=== PATIENT | male | born 1940 | race Caucasian/White ===

== ENCOUNTER 2018-05-08 07:00 | Outpatient (RCR) | payer MEDICARE, SELFPAY ==
--- NOTE | 2018-04-18 18:29 | HP.PTEVAL_ITS ---
Patient's Visit Information DAKOTA PULIDO is a 78 year old M referred to Physical Therapy by Peter Miller MD with a diagnosis of L hip bursitis. Date of Evaluation: 04/18/18 Physical Therapist: Kamlesh Newton PT, - Visit Plan Frequency: 1x/Week Duration: 2 Weeks Plan: Issue HEP L LE strengthening, deg L/S ex's, and postural edu - Subjective Subjective: Pt reports he has had L hip pain for a long time, probably many months. Pt reports he had xrays and reported that he had bursitis. Pt reports his pain always increases as the day goes on. Pt reports he has a difficult time ascending and decending stairs at this time secondary to pain. Pt reports he had an injection into his L hip which has taken away his L hip pain. Pt reports his greatest pain now occurs when he is walking, and it occurs on the lateral aspect of his legs the more he walks. - Pain L hip Pain Intensity (Out of 10): 3 Pain Intensity Range: 7 - Objective Neuro: B LE sensation is WNL to light touch. Palpation: No pain in L hip. No obvious deformity. MMT: B LE's are grossly rated at 4+/5- 5/5. ROM: B hips are WFL. Special tests: None pos this date - Goals Goal 1:: I with HEP 1-2 visits Goal Time Frame: 1 Week - Rehabilitation Potential Physical Therapy Diagnosis: L hip pain and intol for ambulation secondary to L hip bursitis Rehabilitation Potential: Good - Anticipated Interventions Patient/Client Instruction: Educate patient on: Condition, Plan of Care For the Purpose of:: To improve self management Therapeutic Exercise to Include: Strength training, Dynamic Lumbar Stabilization, Stacy Exercises For the Purpose of:: To decrease pain, To improve muscle performance and motor function Thank you for the opportunity to evaluate your patient. For Medicare and Medicare HMO plans, please review the plan of care and approve it. It will need to be FAXED BACK to us at [phone] for Medicare purposes. Please let me know if there are questions or concerns regarding this plan of care. Physician Signature: Date:
--- NOTE | 2018-06-27 12:31 | HP.PT.NRP ---
HP - Discharge Summary (1) - Patient Information DAKOTA PULIDO was seen in my office for initial evaluation on 04/18/18. The following Plan of Care was established for this patient: Initial Frequency: 1x/Week Initial Duration: 2 Weeks - Anticipated Interventions Patient/Client Instruction: Educate patient on: Condition, Plan of Care For the Purpose of:: To improve self management Therapeutic Exercise to Include: Strength training, Dynamic Lumbar Stabilization, Stacy Exercises For the Purpose of:: To decrease pain, To improve muscle performance and motor function This patient was last seen in our office . Pertinent comments regarding their Physical therapy will appear below: Pt was treated for 3 PT visits for his L hip pain through the date of 05/08/18. Pt has not scheduled further PT through todays date, and is therefore discontinued at this time. At this point I will be discontinuing this patient from physical therapy. I would be happy to see this patient again in the future if found appropriate by the physician. Thank you! Kamlesh Newton, PT,
== END 2018-05-08 19:00 | disposition home or self-care (01) ==
LOC: PT 07:00
PROVIDERS: Family Provider Family Medicine; PCP Family Medicine; Referring Provider Specialist; Visit Provider Specialist
DX: M16.12 Unilateral primary osteoarthritis, left hip (principal); M70.62 Trochanteric bursitis, left hip
CPT/HCPCS: 97110; 97161; 97530; G8978; G8979

== ENCOUNTER 2018-10-03 10:30 | Outpatient (RCR) | payer MEDICARE, SELFPAY ==
--- NOTE | 2018-09-13 16:06 | HP.PTEVAL_ITS ---
Patient's Visit Information DAKOTA PULIDO is a 78 year old M referred to Physical Therapy by Peter Miller MD with a diagnosis of L rot cuff tear. Date of Evaluation: 09/13/18 Physical Therapist: Kamlesh Newton, PT, ATC - Visit Plan Frequency: 1x/Week Duration: 2 Weeks Plan: Issue HEP rot cuff strengthening and scap stab ex's - Subjective Findings: Pt reports he reached for something 2 mos ago and experienced a very sharp pain in his L shoulder. Pt reports he had xrays taken which revealed no significant findings. Pt reports he was given the option of an injection and PT, or surgery. Pt now wishes he would just have had the surgery as he is in a lot of pain. Pt is R hand dominant. Pt notes he has to sleep in a recliner secondary to pain. Pt reports he is limited with IADL's secondary to pain. 3/10 pain at rest, 10/10 at worst. Pt reports he has limitations with any type of activity overhead. - Pain L shoulder Pain Intensity (Out of 10): 3 Pain Intensity Range: 10 - Objective Neuro: B UE sensation is WNL to light touch. B bicepital reflex= 2/3. Palpation: Pt is sore on posterior aspect of L shoulder. No obvious deformity at this time. ROM: R shoulder flex= 130, abd= 105, ER= 0. L shoulder flex= 105, abd= 90, ER= 0. MMT: B shoulders are rated at 3-/5. Special tests: Positive empty can and HK - Goals Goal 1:: I with HEP Goal Time Frame: 2 Weeks - Rehabilitation Potential Physical Therapy Diagnosis: L shoulder pain, weakness, and limited ROM secondary to deg changes in L shoulder Rehabilitation Potential: Good - Anticipated Interventions Patient/Client Instruction: Educate patient on: Condition, Plan of Care For the Purpose of:: To improve self management Therapeutic Exercise to Include: Strength training, Endurance training, Scapular Strength/Stabilization For the Purpose of:: To decrease pain, To increase ROM, To improve muscle p erformance and motor function Cryotherapy (ice pack, ice massage): Yes Ultrasound (thermal/non thermal): Yes For the Purpose of:: To decrease pain Thank you for the opportunity to evaluate your patient. For Medicare and Medicare HMO plans, please review the plan of care and approve it. It will need to be FAXED BACK to us at [phone] for Medicare purposes. For Medicare only, by signing this I certify the plan of care. Please let me know if there are questions or concerns regarding this plan of care. Physician Signature: Date:
--- NOTE | 2018-10-03 11:07 | HP.PTDCSUM ---
HP - PT D/C Summary It has been my pleasure to treat DAKOTA PULIDO under orders from Peter Miller MD, for the diagnosis of L rot cuff tear for a total of 3 visit(s). Discharge Date: Please see the following information for a summary of their discharge status. - Subjective Subjective: Pt reports he feels like he has made improvements - Pain L shoulder Pain Intensity (Out of 10): 4 - Overall Improvement % Improvement: 30 - Objective Objective/Function: L shoulder constant 4/10. L shoulder ROM: flex= 115, abd= 75, ER= -10, IR minimally limited. L shoulder MMT: flex and abd= 4/5, IR and ER= 2/5 in available range. Pt is I with HEP - Goals Goal 1:: I with HEP Goal Progress: Goal Met - Plan Plan: Discharge - D/C Information If there are questions or concerns regarding this patient's physical therapy, please feel free to call me at [phone]. Thank you for the referral of this patient. Sincerely, Kamlesh Newton, PT, ATC
== END 2018-10-03 19:00 | disposition home or self-care (01) ==
LOC: PT 10:30
PROVIDERS: Family Provider Family Medicine; PCP Family Medicine; Referring Provider Specialist; Visit Provider Specialist
DX: S46.012D Strain of muscle(s) and tendon(s) of the rotator cuff of left shoulder, subsequent encounter (principal); M75.42 Impingement syndrome of left shoulder; M19.012 Primary osteoarthritis, left shoulder
CPT/HCPCS: 97110; 97161; 97530

== ENCOUNTER → 2018-10-16 11:01 | Outpatient (CLI) | payer MEDICARE, SELFPAY ==
[2018-10-16 11:16] LABS: Hematocrit 46.6 % (40-54); Hemoglobin 15.4 g/dl (13.0-16.5); Mean Corpuscular Hgb 30.9 pg (27.0-32.0); Mean Corpuscular Volume 93.4 fL (80-94); Platelet Count 195 K/mm3 (150-450); RBC Distribution Width CV 13.5 % (11.6-14.6); RBC Distribution Width SD 45.9 fl (35.1-43.9); Red Blood Count 4.99 M/mm3 (4.6-6.2); White Blood Count 5.8 K/mm3 (4.4-11.0)
[2018-10-16 11:17] LABS: Scan Indicated on CBC? Y/N NO
[2018-10-16 11:24] LABS: ALB/GLOB Ratio 1.3 RATIO (0.9-2.4); AST(SGOT) 20 U/L (15-37); Alanine Aminotransfer ALT/SGPT 28 U/L (16-61); Albumin, Serum 3.8 g/dL (3.2-5.0); Alkaline Phosphatase 55 U/L (45-117); Anion Gap 4 (5-15); BUN 20 mg/dL (7-18); BUN/Creat Ratio 26.3 RATIO (10-20); Calcium,Total 8.4 mg/dL (8.5-10.1); Chloride 106 mmol/L (98-107); Cholesterol 144 mg/dL (200); Creatinine, Serum 0.76 mg/dL (0.70-1.30); EST Glomerular Filtration Rate 106 mL/min (>60); Est Glom Filt Rate - Afr Amer 128 mL/min (>60); Glucose 92 mg/dL (74-106); High Density Lipoprotein 49 mg/dL; Potassium 3.8 mmol/L (3.5-5.1); Protein, Total 6.8 g/dL (6.4-8.2); Sodium Level 141 mmol/L (136-145); Triglycerides 87 mg/dL; Very Low Density Lipoprotein 17 mg/dL (5-40)
== END ==
PROVIDERS: Referring Provider Family Medicine; Visit Provider Family Medicine
DX: I10 Essential (primary) hypertension (principal); E78.5 Hyperlipidemia, unspecified
CPT/HCPCS: 80053; 80061; 85027

== ENCOUNTER → 2019-03-07 07:56 | Outpatient (CLI) | payer MEDICARE, SELFPAY ==
--- NOTE | 2019-02-03 22:24 | PCM.HP.BLA ---
History and Physical History and Physical Patient Name: Johnny Betancourt : 1940 DATE OF SURGERY: 02/26/2019 SCHEDULED PROCEDURE: left reverse total shoulder arthroplasty HISTORY OF PRESENT ILLNESS: Preoperative history and physical exam was performed on February 03, 2019. This is a 78-year-old male who is been having ongoing pain in the left shoulder for the past 8-10 months. Patient states he had initial pain after reaching out to catch an empty milk jug. Since then patient has had pain with overhead lifting. Patient had an MRI which did show full-thickness supraspinatus tear with 70% atrophy of the supraspinatus with retraction past the joint. Patient's x-ray also showed joint space noted of the glenohumeral joint. Patient has had previous subacromial shoulder injection which did help the pain. However he was placed in physical therapy and states he continues to have difficulty with activities of daily living including lifting overhead or behind his body. His range of motion is significantly affected due to the pain and limited motion. Patient does feel weaker in the left shoulder. Patient has tried oral medications consisting of Aleve and turmeric. Pain can reach as high as a 10/10 with activity. After failing conservative measures and discussing treatment options of Dr. Peter Miller, the patient would like to proceed with a left reverse total shoulder arthroplasty. We are obtaining surgical clearance from patient's primary care physician Dr. Dixon. Patient currently denies any chest pain, shortness of breath, fevers chills, recent infections. REVIEW OF SYSTEMS: ROS: Const: Reports hard of hearing, but denies anorexia, anxiety, change in appetite, fever, vision problems and weight change. CV: Denies chest pain, heart murmur, irregular heartbeat and peripheral vascular disease. Resp: Denies asthma, cough, pneumonia, sleep apnea, SOB, tuberculosis and wheezing. GI: Denies constipation, diarrhea, difficulty swallowing, heartburn, nausea, bloody stools and vomiting. : Urinary: denies incontinence. Musculo: Reports limp and trouble walking, but denies leg swelling and weakness. Skin: Denies Raynaud's, history of shingles and tattoo. Neuro: Reports numbness/tingling but denies ambulatory dysfunction, dizziness and tremor. Psych: Denies anxiety, depression, insomnia, mental illness and stress. Omkar/Lymph: Denies anemia, bleeding/bruising tendency and past transfusion. Reviewed, no changes. PAST MEDICAL HISTORY: Advance Care Plan: No Advance Directives Effective Date: 04/11/2018 PMH: Medical Problems: Arthritis, High Blood Pressure Accidents: LT Index Finger Injury - (07/17/2016) DRILLED THRU TIP OF FINGER Surgical Hx: Appendectomy - (1957) [facility] Tonsillectomy - [facility] Shoulder Arthroscopy RT - (11/24/2008) DR MARTINEZ AT [facility] Carpal Tunnel Release RT - (08/08/2016) [email or web address] Carpal Tunnel Release LT - (09/05/2016) [email or web address], RT TKR, RT THR Anesthesia Complications: None Assistive Devices: Dentures, Glasses - READING, Hearing Aid Reviewed and updated. 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 Personal Habits: Cigarette Use: Former.Alcohol: Has consumed alcohol in the past.Drug Use: Denies Use.Enjoy Exercising: Exercises 1-3 X/Week. Reviewed, no changes. VITALS: Ht: 67 Wt: 275lb Wt k.740 BMI: 43.1 BP: 131/75 Pulse: 61 Resp: 20 T: 97.9 T: 36.6C ALLERGIES: No Known Drug Allergy MEDICATIONS: Hydrochlorothiazide 25 mg 1 po qd, Amlodipine Besylate 5 mg 1po qday, Aleve 220 mg prn, Tumeric 1 tab PO daily PRE-OP EXAM: General appearance:NORMAL Other: Eyes: Conjunctivae and lids: NORMAL Pupils: ERR Ears, Nose, Mouth, and Throat: NORMAL Other: Inspection of lips, teeth and gums: NORMAL Other: Neck: Examination of neck: no masses noted. Respiratory: Assessment of respiratory effort: NORMAL Other: Auscultation of lungs: clear to auscultation no wheezes, rhonchi or rales. Cardiovascular: Auscultation of heart: regular rate and rhythm, no murmurs, gallops or rubs. Gastrointestinal: Exam of abdomen: soft, nontender, nondistended bowel sounds present. PHYSICAL EXAMINATION: Left shoulder is cool to touch without erythema. There is no appreciable atrophy. She has tenderness to palpation over the left lateral shoulder. Patient has positive Neer impingement, positive Salas impingement. Range of motion left shoulder 140 bilaterally, external rotation 20 actively on the right and 20 actively on the left. Internal rotation T12 on the left and T12 on the right. Supraspinatus strength on the left. Sensation intact to light touch. IMAGING STUDIES: MRI of the left shoulder reveals full-thickness supraspinatus tear of the rotator cuff with greater than 70% atrophy of the supraspinatus. There is retraction past the joint. X-rays of the left shoulder also revealed joint space narrowing of the glenohumeral joint. There is evidence of chronic rotator cuff insufficiency. IMPRESSION: 1. 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 Hypertension PLAN: Dr. Peter Miller did discuss and review with the patient all treatment options including surgical versus nonsurgical options. Patient does wish to proceed with the above-stated procedure. Potential risks, benefits, and complications of the procedure were discussed in detail including but not limited to , infection, nerve and blood vessel damage, persistent pain, numbness, tingling, paresthesias, blood clot, pulmonary embolism, and requirement for possible further surgery. The patient expressed full understanding and has no further questions for the doctor. Patient does agree to proceed with the above-stated procedure and has signed the surgery consent form. This dictation was created using voice recognition software. Phonetic and/or grammatical errors may exist.. ___ I have re-examined the patient. There are no clinical changes since date of exam. ___ See progress notes for changes. ___ Dictated on admission Date: Time: Signature:
--- NOTE | 2019-02-13 14:57 | EKG12_ITS ---
Test Reason : Blood Pressure : / mmHG Vent. Rate : 051 BPM Atrial Rate : 051 BPM P-R Int : 270 ms QRS Dur : 094 ms QT Int : 454 ms P-R-T Axes : 067 -43 -14 degrees QTc Int : 418 ms Sinus bradycardia with 1st degree A-V block Left axis deviation Minimal voltage criteria for LVH, may be normal variant Abnormal ECG Confirmed by FATUMA GORDON, XOCHILT ([id number]), editor managing director SCOTT CUETO ([id number]) on 02/17/2019 1:21:01 PM Referred By: Peter Miller Confirmed By:XOCHILT BURRIS MD
[2019-02-13 15:41] VITALS: BP 125/59; PULSE 55; RESP 16; TEMP 36.5; O2SAT 95; BMI 41.8
[2019-02-13 16:56] LABS: Absolute Lymphocyte Count 1.82 X10^3/uL (0.83-4.51); Absolute Neutrophil Count 4.3 X10^3/uL (2.0-7.7); Basophil# 0.04 X10^3/uL; Basophil% 0.6 % (0-1); Eosinophil# 0.17 X10^3/uL; Eosinophils% 2.4 % (0-5); Hematocrit 45.6 % (40-54); Hemoglobin 14.9 g/dL (13.0-16.5); Lymphocyte # 1.82 X10^3/ul (4.0); Lymphocyte % 25.8 % (19-41); Mean Corp Hgb Conc 32.7 g/dL (32-36); Mean Corpuscular Hgb 30.5 pg (27.0-32.0); Mean Corpuscular Volume 93.3 fL (80-94); Mean Platelet Vol. 10.5 fl (6.2-12.0); Monocyte# 0.71 X10^3/uL; Monocyte% 10.1 % (0-10); NRBC Flagged by Analyzer 0 % (0-5); Neutrophil # 4.28 X10^3/uL (2.7-7.7); Neutrophil % 60.7 % (47-70); Platelet Count 177 K/mm3 (150-450); RBC Distribution Width CV 12.9 % (11.6-14.6); RBC Distribution Width SD 44.1 fl (35.1-43.9); Red Blood Count 4.89 M/mm3 (4.6-6.2); White Blood Count 7.1 K/mm3 (4.4-11.0)
[2019-02-13 17:23] LABS: ALB/GLOB Ratio 1.4 RATIO (0.9-2.4); AST(SGOT) 19 U/L (15-37); Alanine Aminotransfer ALT/SGPT 29 U/L (16-61); Albumin, Serum 3.8 g/dL (3.2-5.0); Alkaline Phosphatase 53 U/L (45-117); Anion Gap 7 (5-15); BUN 27 mg/dL (7-18); Calcium,Total 8.8 mg/dL (8.5-10.1); Chloride 106 mmol/L (98-107); Creatinine, Serum 0.77 mg/dL (0.70-1.30); EST Glomerular Filtration Rate 104 mL/min (>60); Est Glom Filt Rate - Afr Amer 126 mL/min (>60); Globulin 2.8 g/dL (2.2-4.2); Glucose 91 mg/dL (74-106); Potassium 3.8 mmol/L (3.5-5.1); Protein, Total 6.6 g/dL (6.4-8.2); Sodium Level 143 mmol/L (136-145)
== END ==
LOC: MS3 02-26 06:50 → SDC 07:57
PROVIDERS: Family Provider Family Medicine; PCP Family Medicine; Referring Provider Specialist; Visit Provider Specialist
DX: M19.012 Primary osteoarthritis, left shoulder (principal); I10 Essential (primary) hypertension; Z87.891 Personal history of nicotine dependence
CPT/HCPCS: 36415; 80053; 85025; 87081; 93005; J7040; J7120

== ENCOUNTER 2019-04-23 05:14 | Inpatient (IN) | payer MEDICARE, SELFPAY ==
[2019-02-13 15:41] VITALS: BMI 41.8
[2019-04-04 10:32] VITALS: BP 113/64; PULSE 56; RESP 17; TEMP 36.5; O2SAT 97; BMI 40.0
[2019-04-04 11:12] LABS: Absolute Lymphocyte Count 1.58 X10^3/uL (0.83-4.51); Absolute Neutrophil Count 3.4 X10^3/uL (2.0-7.7); Basophil# 0.03 X10^3/uL; Basophil% 0.5 % (0-1); Eosinophil# 0.14 X10^3/uL; Eosinophils% 2.4 % (0-5); Hematocrit 48.2 % (40-54); Hemoglobin 15.7 g/dL (13.0-16.5); Lymphocyte # 1.58 X10^3/ul (4.0); Lymphocyte % 27.1 % (19-41); Mean Corp Hgb Conc 32.6 g/dL (32-36); Mean Corpuscular Hgb 30.6 pg (27.0-32.0); Monocyte# 0.62 X10^3/uL; Monocyte% 10.7 % (0-10); NRBC Flagged by Analyzer 0 % (0-5); Neutrophil # 3.43 X10^3/uL (2.7-7.7); Platelet Count 189 K/mm3 (150-450); RBC Distribution Width CV 12.9 % (11.6-14.6); RBC Distribution Width SD 44.7 fl (35.1-43.9); Red Blood Count 5.13 M/mm3 (4.6-6.2); White Blood Count 5.8 K/mm3 (4.4-11.0)
[2019-04-04 11:47] LABS: Anion Gap 3 (5-15); BUN 22 mg/dL (7-18); BUN/Creat Ratio 31.6 RATIO (10-20); Calcium,Total 8.9 mg/dL (8.5-10.1); Chloride 105 mmol/L (98-107); EST Glomerular Filtration Rate 117 mL/min (>60); Est Glom Filt Rate - Afr Amer 141 mL/min (>60); Estimated Creatinine Clearance 61.86 ml/min; Glucose 104 mg/dL (74-106); Potassium 3.8 mmol/L (3.5-5.1); Sodium Level 139 mmol/L (136-145)
--- NOTE | 2019-04-04 12:48 | HP.PCM_ITS ---
History and Physical Patient Name: Johnny Betancourt : 1940 From: EHSAN SANTORO PA-C DATE OF SURGERY: 04/23/2019 SCHEDULED PROCEDURE: left reverse total shoulder arthroplasty HISTORY OF PRESENT ILLNESS: Preoperative history and physical exam was performed on April 04, 2019. This is a 79-year-old male who was scheduled to previously undergo a left reverse total shoulder arthroplasty but had to be canceled due to open wounds on his arm. Patient's wounds have healed and he is doing significantly better. Patient has been having ongoing pain in his left shoulder for approximately 1 year. Patient initially had pain after reaching out trying to catch an empty milk jug when he had increased pain. Since then he has had pain with overhead lifting. Previous MRI did show supraspinatus tear full-thickness with 70% atrophy and retraction. Patient also has significant osteoarthritis of the glenohumeral joint. He has had previous corticosteroid injections with no relief in symptoms. He has undergone physical therapy without relief. He continues to struggle daily with activities of daily living requiring any overhead use or behind the body. His range of motion is significantly affected on the left side when compared to the right. On the left shoulder. Patient has tried oral medications consisting of Aleve and turmeric. Pain can reach a size a 10/10. We have obtain surgical clearance from patient's primary care physician Dr. Dixon. Patient currently denies any chest pain, shortness of breath, fevers chills, recent infections. After failing conservative measures and discussing treatment options with Dr. Peter Miller, the patient does wish to proceed with a left reverse total shoulder arthroplasty. REVIEW OF SYSTEMS: ROS: Const: Reports hard of hearing, but denies anorexia, anxiety, change in appetite, fever, vision problems and weight change. CV: Denies chest pain, heart murmur, irregular heartbeat and peripheral vascular disease. Resp: Denies asthma, cough, pneumonia, sleep apnea, SOB, tuberculosis and wheezing. GI: Denies constipation, diarrhea, difficulty swallowing, heartburn, nausea, bloody stools and vomiting. : Urinary: denies incontinence. Musculo: Reports limp and trouble walking, but denies leg swelling and weakness. Skin: Denies Raynaud's, history of shingles and tattoo. Neuro: Reports numbness/tingling but denies ambulatory dysfunction, dizziness and tremor. Psych: Denies anxiety, depression, insomnia, mental illness and stress. Omkar/Lymph: Denies anemia, bleeding/bruising tendency and past transfusion. Reviewed, no changes. PAST MEDICAL HISTORY: Advance Care Plan: No Advance Directives Effective Date: 04/11/2018 PMH: Medical Problems: Arthritis, High Blood Pressure Accidents: LT Index Finger Injury - (07/17/2016) DRILLED THRU TIP OF FINGER Surgical Hx: Appendectomy - (1957) [facility] Tonsillectomy - [facility] Shoulder Arthroscopy RT - (11/24/2008) DR MARTINEZ AT [facility] Carpal Tunnel Release RT - (08/08/2016) [email or web address] Carpal Tunnel Release LT - (09/05/2016) [email or web address] [email or web address], RT TKR, RT THR Anesthesia Complications: None Assistive Devices: Dentures, Glasses - READING, Hearing Aid Reviewed, no changes. 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 Personal Habits: Cigarette Use: Former.Alcohol: Has consumed alcohol in the past.Drug Use: Denies Use.Enjoy Exercising: Exercises 1-3 X/Week. Reviewed, no changes. VITALS: Ht: 68 Wt: 270lb Wt k.472 BMI: 41.0 BP: 138/80 Pulse: 60 Resp: 14 T: 97.5 T: 36.4C ALLERGIES: No Known Drug Allergy MEDICATIONS: Hydrochlorothiazide 25 mg 1 po qd, Amlodipine Besylate 5 mg 1po qday, Aleve 220 mg prn PRE-OP EXAM: General appearance:NORMAL Other: Eyes: Conjunctivae and lids: NORMAL Pupils: ERR Ears, Nose, Mouth, and Throat: NORMAL Other: Inspection of lips, teeth and gums: NORMAL Other: Neck: Examination of neck: no masses noted. Respiratory: Assessment of respiratory effort: NORMAL Other: Auscultation of lungs: clear to auscultation no wheezes, rhonchi or rales. Cardiovascular: Auscultation of heart: regular rate and rhythm, no murmurs, gallops or rubs. Gastrointestinal: Exam of abdomen: soft, nontender, nondistended bowel sounds present. PHYSICAL EXAMINATION: Bilateral forearms show healed abrasions. There is no erythema or drainage or any open wounds. Left shoulder is cool to touch without erythema. There is no appreciable atrophy. She has tenderness to palpation over the left lateral shoulder. Patient has positive Neer impingement, positive Salas impingement. Range of motion left shoulder 140 bilaterally, external rotation 20 actively on the right and 20 actively on the left. Internal rotation T12 on the left and T12 on the right. Supraspinatus strength on the left. Sensation intact to light touch. IMAGING STUDIES: MRI of the left shoulder reveals full-thickness supraspinatus tear of the r otator cuff with greater than 70% atrophy of the supraspinatus. There is retraction past the joint. X-rays of the left shoulder also revealed joint space narrowing of the glenohumeral joint. There is evidence of chronic rotator cuff insufficiency. IMPRESSION: 1. 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 Hypertension PLAN: Dr. Peter Miller did discuss and review with the patient all treatment options including surgical versus nonsurgical options. Patient does wish to proceed with the above-stated procedure. Potential risks, benefits, and complications of the procedure were discussed in detail including but not limited to , infection, nerve and blood vessel damage, persistent pain, numbness, tingling, paresthesias, blood clot, pulmonary embolism, and requirement for possible further surgery. The patient expressed full understanding and has no further questions for the doctor. Patient does agree to proceed with the above-stated procedure and has signed the surgery consent form. This dictation was created using voice recognition software. Phonetic and/or grammatical errors may exist. ___ I have re-examined the patient. There are no clinical changes since date of exam. ___ See progress notes for changes. ___ Dictated on admission Date: Time: Signature:
[2019-04-23] VITALS (12 sets, daily range): BP systolic 91–150; BP diastolic 52–85; PULSE 49–92; RESP 16–18; TEMP 35.6–36.8; O2SAT 94–100; BMI 40.0; BMI 40.1
[2019-04-23] MEDS: Magnesium Sulfate 4gm/100mL 4 GM/100 ML IV.SOLN. IV (06:02)
[2019-04-23] MEDS: Acetaminophen 500 MG Tablet 1000 MG PO ×3 (06:03→21:37)
[2019-04-23] MEDS: Celecoxib 200 MG Capsule 400 MG PO (06:03)
[2019-04-23] MEDS: Gabapentin 600 MG Tablet PO (06:03)
[2019-04-23] MEDS: Lactated Ringers 1,000 ML 100 ML IV (06:05)
[2019-04-23 06:41] LABS: Bedside Glucose 98 mg/dL (70-110)
[2019-04-23] MEDS: dexAMETHasone 10 MG/ML Vial IV (08:56)
--- NOTE | 2019-04-23 10:00 | OP.PCM_ITS ---
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 Tacos reunion glenoid baseplate with 28 mm screw 2. Tacos reunion 36 mm, 2 mm offset glenosphere 3. [place] reunion short stem 15 mm 4. [place] reunion 36 mm +4 mm baseplate 4. [place] reunion X3 polyethylene, +6 mm polyethylene Brief history/Operative indications: 79 yo m with history of L shoulder pain and cuff tear arthropathy. Patient failed conservative measures as mentioned in the H&P. After discussion of risk and benefits of reverse total shoulder replacement including but not limited to blood loss, DVTs, PEs, nerve vessel damage, infection, general risk of anesthesia including loss of life, instability and stiffness patient demonstrating understanding wish to proceed was able to sign informed consent. Medical clearance was obtained. Procedure: On the date of the procedure, patient's L upper extremity was marked in the preoperative area. Patient was taken back to the operating room where they were placed on the table in the supine position. Anesthesia assumed control of the C-spine and airway, then administered anesthetic. All bony prominences were identified well-padded, the head was secured and the patient was placed in the beachchair position at about 35? inclination. Anesthesia remained in control of the C-spine airway throughout the remainder of the procedure. Patient was then appropriately fastened to the table and the L upper extremity was prepped in a sterile fashion. The surgeons then scrubbed. Upon reentering the room, the L upper extremity was draped in a sterile fashion and the incision was marked out. Timeout was called, everyone agreed upon the side, the site, the procedure to be performed, patient identity and antibiotics given. Incision was taken down through skin and subcutaneous tissue, fat down to fascia. The stripe of the deltopectoral interval and cephalic vein were identified and blunt dissection was used to retract the deltoid. The cephalic vein was retracted laterally. Clavipectoral fascia was then incised and a cobra retractor was placed in the wound. The proximal one third of the pectoralis major insertion was released. Pectoralis tendon insertion was used to tenodesed the biceps tendon which was identified in the bicipital groove. Tenodesis was done with #1 Vicryl. Proximally we followed the biceps tendon after transecting it into the rotator interval. The rotator interval was split and the arm was externally rotated. The split was 1 cm medial to the bicipital groove. Subscapularis tendon was released. We released down the anterior portion of the humeral head and a arias elevator was used to release the inferior portion of the humeral head. The arm was externally rotated and the shoulder was dislocated. The humeral head cutting guide was used to make humeral cut. This was done at 20? retroversion. Once his humeral head cut was made humerus was retracted out of the way and the glenoid was exposed. After exposing the glenoid, the labrum and the remaining proximal biceps were debrided. At this time we are able to view the entire outer edge of the glenoid. A central pin was placed we sequentially reamed over this central pin to 36mm. Once this was completed the central pedicle was drilled. The glenoid baseplate was impacted into place. Wound was closely irrigated out with normal saline we then drilled sequentially for 2 screws. Screws were placed superiorly and inferiorly and tightened down the screws. a 36 mm glenosphere was impacted into place engaging the Mariscal taper. The central screw was then tightened into place. Attention was then turned towards the humerus. The humerus was again externally rotated exposing the proximal portion of the humerus. Central canal finder was then used to open up the canal. We reamed to a 15mm reamer. We then broached to a 15mm stem. We trialed the 6mm liner, with the 4mm humeral baseplate. We obtained an adequate reduction at this time with a nice stable shoulder. Good internal rotation to the gluteus, forward elevation to 140?, external rotation to 20?. Final components were then assembled on the back table, trials were removed and the wound was copiously irrigated with normal saline after dislocating the shoulder. Once the final components were assembled they were impacted into place. Shoulder was then reduced and found to be stable with good range of motion. Subscapularis tendon was repaired using #2 FiberWire. The wound was then copiously irrigated out with a a chlorhexidine lavage and then 1 L normal saline lavage. The deltopectoral fascia was then closed using #1 Vicryl skin was closed using 2-0 Vicryl interrupted sutures and final skin closure was done with 3-0 Monocryl. Steri-Strips are placed for final skin closure. Sterile dressing was placed patient was then placed in a sling and awakened by anesthesia. Patient was then transferred to the PACU for recovery. Postoperative plan: Patient will be admitted to the hospital overnight. They will get physical therapy starting in 2 weeks with normal postoperative regimen. Patient will be placed on aspirin daily for DVT prophylaxis. The first postoperative appointment will be in 2 weeks for wound check and initiation of phase 1 physical therapy. Grafts/Implants Used: Tacos reunion reverse total shoulder system - Complications No intraoperative complications - Admit VTE Documentation VTE Present on Admission: No VTE Mechan Device Prophylaxis: SCD's, Thigh High AURORA Hose VTE Pharm Prophylaxis ordered?: Yes
[2019-04-23] MEDS: Lactated Ringers 1,000 ML 999 ML IV (10:40)
--- NOTE | 2019-04-23 11:03 | RAD_ITS ---
STUDY: X-RAY - LEFT SHOULDER REASON FOR EXAM: Male, 79 years old. Recent left shoulder hemiarthroplasty TECHNIQUE: 3 view view(s) of the shoulder. COMPARISON: None. FINDINGS: A recent reverse right shoulder hemiarthroplasty has been performed showing the hemiarthroplasty and axial anatomic position and alignment. The soft tissue structures are unremarkable. Normal visualized pulmonary apex. RAD/Shoulder min 2 Views IMPRESSION: A reverse right shoulder hemiarthroplasty is identified in excellent anatomic position and alignment.. Electronically Signed: Wolfgang Perea, at 11:25 EDT Tel , Service support ,
[2019-04-23] MEDS: Lactated Ringers 1,000 ML 125 ML IV (11:53)
[2019-04-23] MEDS: hydroCHLOROthiazide 25 MG Tablet PO (12:27)
[2019-04-23] MEDS: Senna/Docusate Sodium 1 Tablet 2 TABLET PO ×2 (12:27→21:37)
[2019-04-23] MEDS: Ensure Surgery 237 ML LIQUID PO ×2 (12:27→18:15)
[2019-04-23] MEDS: Famotidine 20 MG Tablet PO (12:27)
[2019-04-23] MEDS: Cefazolin 1 GM/50 ML BAG IV (16:32)
[2019-04-24] MEDS: Cefazolin 1 GM/50 ML BAG IV (00:08)
[2019-04-24 03:33] VITALS: BP 126/59; PULSE 58; RESP 18; TEMP 36.6; O2SAT 95
[2019-04-24] MEDS: 0.9% NaCl Peripheral Flush Adult/Peds IV (03:36)
[2019-04-24] MEDS: Acetaminophen 500 MG Tablet 1000 MG PO (05:59)
[2019-04-24 06:03] LABS: Hemoglobin 14.8 g/dL (13.0-16.5); Mean Corp Hgb Conc 32.2 g/dL (32-36); Mean Corpuscular Hgb 30.7 pg (27.0-32.0); Mean Corpuscular Volume 95.4 fL (80-94); Mean Platelet Vol. 10.4 fl (6.2-12.0); Platelet Count 186 K/mm3 (150-450); RBC Distribution Width CV 13.1 % (11.6-14.6); RBC Distribution Width SD 46.2 fl (35.1-43.9); Red Blood Count 4.82 M/mm3 (4.6-6.2); White Blood Count 14.5 K/mm3 (4.4-11.0)
[2019-04-24 06:36] LABS: Anion Gap 6 (5-15); BUN 17 mg/dL (7-18); BUN/Creat Ratio 22.9 RATIO (10-20); Calcium,Total 8.5 mg/dL (8.5-10.1); Chloride 103 mmol/L (98-107); Creatinine, Serum 0.74 mg/dL (0.70-1.30); EST Glomerular Filtration Rate 109 mL/min (>60); Est Glom Filt Rate - Afr Amer 132 mL/min (>60); Estimated Creatinine Clearance 61.86 ml/min; Glucose 114 mg/dL (74-106); Potassium 3.8 mmol/L (3.5-5.1); Sodium Level 142 mmol/L (136-145)
--- NOTE | 2019-04-24 07:39 | PCM.PN.ORT ---
Subjective: The patient was sitting in bedside chair upon examination. Patient denies any chest pain, shortness of breath, dizziness, lightheadedness, nausea or vomiting, or calf pain. Pain is controlled on medications. No adverse overnight events. Overall patient is doing very well. He has no pain at this time. Patient does wish to go home today. Objective: Vital signs stable, afebrile Dressing is clean, dry, intact Ultra-sling fitting appropriately Sensation intact to axillary, radial, median, and ulnar distribution Motor intact to AIN, PIN, and ulnar nerve - Physical Exam General: Alert, Oriented x3, Cooperative, No apparent distress Vital Signs Temp Pulse Resp BP Pulse Ox 98 F 58 L 18 126/59 H 95 04/24/19 03:33 04/24/19 03:33 04/24/19 03:33 04/24/19 03:33 04/24/19 03:33 Oxygen Flow Rate (L/min) 6 Oxygen Delivery Method Room Air Weight: 123.377 kg Body Mass Index (BMI) 40.1 Intake and Output for Last 24 Hours 04/22/19 04/23/19 04/24/19 23:59 23:59 23:59 Intake Total 4996.25 / 4996.25 605.75 / 605.75 Balance 4996.25 / 4996.25 605.75 / 605.75 Laboratory Tests Past 24 Hrs 04/24/19 04/24/19 05:35 05:35 WBC 14.5 H RBC 4.82 Hgb 14.8 Hct 46.0 MCV 95.4 H MCH 30.7 MCHC 32.2 RDW Std Deviation 46.2 H RDW Coeff of Darinel 13.1 Plt Count 186 MPV 10.4 Sodium 142 Potassium 3.8 Chloride 103 Carbon Dioxide 33.0 H Anion Gap 6 BUN 17 Creatinine 0.74 Estim Creat Clear Calc 61.86 Est GFR (MDRD) Af Amer 132 Est GFR (MDRD) Non-Af 109 BUN/Creatinine Ratio 22.9 H Glucose 114 H Calcium 8.5 Medical Necessity - Tobacco Use Smoking Status: Former smoker Assessment/Plan 1. S/P left reverse total shoulder arthroplasty POD #1 2. Continue Pain Medications: Tylenol primarily for pain control and oxycodone for breakthrough pain 3. DVT Prophylaxis: Aspirin 325 mg 2 weeks postoperatively 4. PT/OT: No range of motion left shoulder until formal physical therapy 2 weeks postoperatively. Okay to begin pendulum exercises and range of motion exercises of the left elbow/wrist/hand. Continue with UltraSling. 5. H & H: 14.8/46.0, asymptomatic 6. Reactive leukocytosis: Currently 14.5, afebrile. Patient did receive Decadron intraoperatively. 7. Encouraged Incentive Spirometry 8. Disposition: Orthopedically stable, plan will be for discharge home today. Prescriptions will be attached to chart. Patient will follow postoperative instructions.
--- NOTE | 2019-04-24 07:46 | PCM.DC.ORTHO ---
Discharge Diet: No Restrictions Discharge Activity: May Not Drive May shower in (days): 1 - Turn dressing away from water Ice area for (Minutes): 20 - Every 1-2 hours while awake Weight Bearing Status: No weight bearing - Left upper extremity Call your doctor if your incision/area has: Continuous Slow Oozing, Sudden Increased Bleeding, Increased Pain/ Swelling, Increased Redness, Foul Smelling Discharge Call your doctor if you observe: Fever of 101 or Higher, Coldness, Increased Pain, Numbness or Tingling, Change in Color Remove Dressing in (days):: 4 - Okay to remove dressing on April 28, 2019 Additional Instructions: Follow orthopedic postop instructions Allergies/Adverse Reactions: Allergies No Known Allergies Allergy (Verified 04/23/19 05:51) Medications to take at Discharge amlodipine 5 mg tablet 5 mg PO QDAY 12/13/17 hydrochlorothiazide 25 mg tablet 25 mg PO QDAY 12/13/17 Fluticasone 0.05% [Flonase Nasal [place]] 2 spray NASAL QHS 02/18/19 Acetaminophen [Tylenol] 1,000 mg PO Q8 14 Days #100 tab 04/24/19 Aspirin 325 mg PO DAILY@0800 14 Days #14 tab 04/24/19 Famotidine [Pepcid] 20 mg PO DAILY #14 tab 04/24/19 Meloxicam [Mobic] 7.5 mg PO BID #60 tab 04/24/19 Senna/Docusate Sodium [Senokot-S] 2 tab PO BID #10 tab 04/24/19 traMADol [Ultram] 50 - 100 mg PO Q6H PRN PRN 4 Days #32 tab 04/24/19 The following prescriptions were given: Aspirin 325 mg PO DAILY@0800 14 Days #14 tab Prescription Printed Meloxicam [Mobic] 7.5 mg PO BID #60 tab Prescription Printed Famotidine [Pepcid] 20 mg PO DAILY #14 tab Prescription Printed Senna/Docusate Sodium [Senokot-S] 2 tab PO BID #10 tab Prescription Printed Acetaminophen [Tylenol] 1,000 mg PO Q8 14 Days #100 tab Prescription Printed traMADol [Ultram] 50 - 100 mg PO Q6H PRN PRN 4 Days #32 tab PRN Reason: Pain Score 4-10/10 Prescription Printed Primary Care Physician: Ray Dixon III, MD [Primary Care Provider] - Test Results: Test results from this visit will be discussed in further detail at your follow-up appointment, if applicable. Please Follow Up With: [facility] Physical Therapy When: Must be after 2 week follow up with Ortho Please Follow Up With: Donny Allen PA-C When: 05/07/19 @ 9:30 am
[2019-04-24 09:30] VITALS: BP 119/45; PULSE 63; RESP 18; TEMP 36.8; O2SAT 94
[2019-04-24] MEDS: amLODIPine 5 MG Tablet PO (09:33)
[2019-04-24] MEDS: hydroCHLOROthiazide 25 MG Tablet PO (09:33)
[2019-04-24] MEDS: Famotidine 20 MG Tablet PO (09:33)
[2019-04-24] MEDS: Meloxicam 7.5 MG Tablet PO (09:34)
[2019-04-24] MEDS: Aspirin 325 MG Tablet PO (09:34)
[2019-04-24] MEDS: Ensure Surgery 237 ML LIQUID PO (09:35)
--- NOTE | 2019-04-24 09:35 | CASEMGMT ---
RN KEARA Face to Face with patient for initial transition planning/care coordination assessment. RN CM introduced self and role at [facility]. Patient sitting in chair, alert and oriented, at bedside. Patient willing to participate in assessment and is able to answer all questions appropriately. Care providers, pharmacy, and demographics verified. Patient wishes to discharge home and has outpatient therapy scheduled for in 2 weeks at [facility]. Patient states he has no further needs or concerns at this time. CM to follow for discharge planning needs that may arise. PCP: Ray Dixon Specialists: erika Miller Preferred Pharmacy: [facility] Insurance: [employer] [facility] Prescription Benefit: yes Living Will/HPOA: Has living will, no HPOA LNOK: Living Arrangements: Patient lives with in 1 story home with 3 steps and railing to enter the home. Patient independent at home prior to surgery. Transportation: DME/HHC: Patient states he has cane and shower chair at home. Has had [facility] in the past. law secretary scheduled outpatient therapy at [facility] per patient's and ENRIQUE Redd's request for in 2 weeks. Disposition Plan: Patient to discharge home with family support and follow-up plans in place. Sara SINGH, RN, CM
[2019-04-24] MEDS: Senna/Docusate Sodium 1 Tablet 2 TABLET PO (09:49)
== END 2019-04-24 10:29 | disposition home or self-care (01) | DRG 483 ==
LOC: ACINP 05:22 → MS3 09:10
PROVIDERS: Admitting Provider Specialist; Family Provider Family Medicine; PCP Family Medicine; Referring Provider Specialist; Visit Provider Specialist
PROC: 0RRK00Z Replacement of Left Shoulder Joint with Reverse Ball and Socket Synthetic Substitute, Open Approach (ICD-10-PCS; CPT 23472; principal; 2019-04-23 07:45)
DX: M75.102 Unspecified rotator cuff tear or rupture of left shoulder, not specified as traumatic (principal); M19.012 Primary osteoarthritis, left shoulder; I10 Essential (primary) hypertension; M19.90 Unspecified osteoarthritis, unspecified site; H91.90 Unspecified hearing loss, unspecified ear; Z79.82 Long term (current) use of aspirin; Z79.899 Other long term (current) drug therapy; Z87.891 Personal history of nicotine dependence
CPT/HCPCS: 36415; 73030; 80048; 82962; 85025; 85027; 87081; 97166; 97530; 97535; 99251; C1776; J7040; J7120; A4216; G0463

== ENCOUNTER 2019-06-25 08:30 | Outpatient (RCR) | payer MEDICARE, SELFPAY ==
[2019-04-23 12:10] VITALS: BMI 40.1
--- NOTE | 2019-05-07 12:57 | HP.PTEVAL ---
Patient's Visit Information DAKOTA PULIDO is a 79 year old M referred to Physical Therapy by Donny Allen PA-C with a diagnosis of L shoulder reverse TSA. Date of Evaluation: 05/07/19 Physical Therapist: Kamlesh Newton, PT, ATC - Visit Plan Frequency: 2-3x /Week Duration: 4-6 Weeks Plan: L shoulder stretching, PROM/mobs, Overhead pulleys, wand ex's, UBE, CP for pain. Begin strengthening in about 4 weeks - Subjective Findings: DOS: 04/23/19. Pt reports he had a reverse L TSA performed at this time. Pt reports he had L shoulder pain for over 2 years prior to having the suregery performed. Pt is R hand dominant. Pt is glad to have had the surgery at this time. Pt reports he is most dissapointed his his ROM at this time. No sleep difficulty at this time secondary to pain. Pt reports no tingling or numbness in L shoulder at this time. 0/10 pain at rest, 5/10 with movement. - Pain L shoulder Pain Intensity (Out of 10): 0 Pain Intensity Range: 5 - Objective Neuro: B UE sensation is WNL to light touch. B bicepital reflex= 2/3. Observation: Incision is healing welll. No signs of infection. steri strips still intact. ROM: R shoulder flex= 140, abd= 100, ER= 0, IR WNL; L shoulder flex= 55, abd= 55. MMT: R shoulder is 5/5 throughout available ROM. L shoulder is 3/5 and painful - Goals Goal 1:: Decrease L shoulder pain x 50% to aid with IADL's Goal Time Frame: 4-6 Weeks Goal 2:: Increase L shoulder flex and abd ROM x 30 degrees to aid with overhead lifting Goal Time Frame: 4-6 Weeks Goal 3:: Increase L shoulder strength x 1 grade to aid with IADL's Goal Time Frame: 4-6 Weeks Goal 4:: I with HEP Goal Time Frame: 4-6 Weeks - Rehabilitation Potential Physical Therapy Diagnosis: L shoulder pain, weakness, and limited ROM secondary to L TSA Rehabilitation Potential: Good - Anticipated Interventions Patient/Client Instruction: Educate patient on: Condition, Plan of Care For the Purpose of:: To improve self management Therapeutic Exercise to Include: Strength training, Endurance training, Flexibilty training, Passive ROM, Active ROM, Scapular Strength/Stabilization For the Purpose of:: To decrease pain, To increase ROM, To improve muscle performance and motor function Cryotherapy (ice pack, ice massage): Yes For the Purpose of:: To decrease pain Thank you for the opportunity to evaluate your patient. For Medicare and Medicare HMO plans, please review the plan of care and approve it. It will need to be FAXED BACK to us at [phone] for Medicare purposes. For Medicare only, by signing this I certify the plan of care. Please let me know if there are questions or concerns regarding this plan of care. Physician Signature: Date:
--- NOTE | 2019-06-25 08:59 | HP.PTDCSUM ---
HP - PT D/C Summary It has been my pleasure to treat DAKOTA PULIDO under orders from Donny Allen PA-C, for the diagnosis of L shoulder reverse TSA for a total of 11 visit(s). Discharge Date: Please see the following information for a summary of their discharge status. - Subjective Subjective: Pt reports he is ready for discharge - Pain L shoulder Pain Intensity (Out of 10): 0 - Overall Improvement % Improvement: 75 - Objective Objective/Function: L shoulder pain 0/10. L shoulder ROM: flex= 125, abd= 105, ER= 10, IR severely limited. L shoulder MMT: 4+/5 throughout with exception to ER 4-/5. Pt is I with HEP. Rx goals achieved - Goals Goal 1:: Decrease L shoulder pain x 50% to aid with IADL's Goal Progress: Goal Met Goal 2:: Increase L shoulder flex and abd ROM x 30 degrees to aid with overhead lifting Goal Progress: Goal Met Goal 3:: Increase L shoulder strength x 1 grade to aid with IADL's Goal Progress: Goal Met Goal 4:: I with HEP Goal Progress: Goal Met - Plan Plan: Discharge - D/C Information If there are questions or concerns regarding this patient's physical therapy, please feel free to call me at [phone]. Thank you for the referral of this patient. Sincerely, Kamlesh Newton, PT, ATC
== END 2019-06-25 19:00 | disposition home or self-care (01) ==
LOC: PT 08:30
PROVIDERS: Family Provider Family Medicine; PCP Family Medicine; Visit Provider Physician Assistant Surgical
DX: S46.012D Strain of muscle(s) and tendon(s) of the rotator cuff of left shoulder, subsequent encounter (principal); M75.42 Impingement syndrome of left shoulder; M19.012 Primary osteoarthritis, left shoulder
CPT/HCPCS: 97110; 97140; 97161; 97530

== ENCOUNTER → 2020-12-04 07:41 | Outpatient (CLI) | payer MEDICARE, SELFPAY ==
[2019-04-23 12:10] VITALS: BMI 40.1
[2020-12-04 08:49] LABS: Anion Gap 4 (5-15); BUN 28 mg/dL (7-18); BUN/Creat Ratio 38.5 RATIO (10-20); Calcium,Total 8.8 mg/dL (8.5-10.1); Chloride 108 mmol/L (98-107); Cholesterol 146 mg/dL (200); Creatinine, Serum 0.73 mg/dL (0.70-1.30); EST Glomerular Filtration Rate 111 mL/min (>60); Est Glom Filt Rate - Afr Amer 134 mL/min (>60); Glucose 100 mg/dL (74-106); High Density Lipoprotein 58 mg/dL; Potassium 3.8 mmol/L (3.5-5.1); Sodium Level 144 mmol/L (136-145); Triglycerides 71 mg/dL; Very Low Density Lipoprotein 14 mg/dL (5-40)
== END ==
PROVIDERS: PCP Family Medicine; Referring Provider Nurse Practitioner Family; Visit Provider Nurse Practitioner Family
DX: E78.5 Hyperlipidemia, unspecified (principal)
CPT/HCPCS: 36415; 80048; 80061

== ENCOUNTER 2023-04-26 07:47 | Outpatient (RCR) | payer MEDICARE, SELFPAY ==
--- NOTE | 2023-04-26 11:54 | HP.PTEVAL ---
Patient's Visit Information Visit Information Visit Information: DAKOTA PULIDO is a 83 year old M referred to Physical Therapy by Dr. 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 Date of Evaluation: 04/26/23 Physical Therapist: Kota Arrington DPT Visit Plan Frequency: 1x/Week Duration: 6 Weeks Plan: Start with quad strengthening, quad stretching and HS stretching. He was given HEP this date for those exercises. He has a rower at home that he has been using as well. Cont. to use, but at a reduced amount of reps. Pt. consents. Pt. to follow back up with PT in ~2 weeks to reassess. Subjective Subjective: Pt. is here today for his initial evaluation with diagnosis of presence of R knee/hip replacement. Pt. reports having them replaced 10+ years ago. Pt. is now having issues with B anterior thighs with prolonged standing and walking. Pt. denies pain currently. Pt. reports with standing longer periods of time he gets fatigue/soreness in his thighs. Pt. works at an [employer] and reports increased soreness with prolonged standing. Pt. denies N/T in either LE. Pt. has been using a rower at home to exercises attempting to get 100 pulls in a day, but tries to use only his legs. pt. is sleeping well. pt. is hopeful to reduce symptoms in order to get back to all recreational and work activities without limitations. Pain R thigh: Pain Intensity (Out of 10): 0 Pain Intensity Range: 0 and 3 L thigh: Pain Intensity (Out of 10): 0 Pain Intensity Range: 0 and 3 Objective Objective: POSTURE: Pt. has a fwrd head and forward flexed posture in stance. Slight B knee flexion in stance. Does not have full knee extension bilaterally. (missing 5 degrees or so). No lateral wt. shift noted. PALPATION: Pt. has some tenderness along anterior quads, no knee or hip pain with palpation. NEURO: normal throughout BLEs. Pt. is able to rise on heels and toes. ROM: RLE: knee 0-5-110deg. Tight quads and HS. LLE: knee 0-4-109deg. Tight HS and quads. MMT: Pt. has good HS strength bilaterally, slight weakness with B quads. GAIT: Pt. has decreased step length bilaterally. Pt. has increased lateral sway to stance phase. STAIRS: Pt. is able to complete with reciprocal pattern without much issues. Balance/Special Test Scores Lower Extremity Functional Score: 31 Goals Goal 1:: LTG: Pt. to be I with HEP for LE strengthening and ROM in order to reduce risk for future injury. Goal Time Frame: 4-6 Weeks Goal 2:: LTG: Pt. to have increased quad and HS length bilaterally indicated by 75deg of HS length in 90/90 positioning and - eun stretch. Goal Time Frame: 4-6 Weeks Goal 3:: LTG: pt. to have increased quad strength to 25# bilaterally in order to increase ease with standing and work duties. Goal Time Frame: 4-6 Weeks Goal 4:: LTG: Pt. to be able to walk 400' with improved gait pattern without increase in B quad pain. Goal Time Frame: 4-6 Weeks Rehabilitation Potential Physical Therapy Diagnosis: Pt. 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 Pt. has marked BLE hypomobility and weakness and would benefit from PT to work on the above limitations progressing back to all work and recreational activities without issues. Rehabilitation Potential: Excellent Anticipated Interventions Patient/Client Instruction: Educate patient on: Condition, Plan of Care, Risk Factors and Benefits of Fitness Program For the Purpose of:: To improve decision making, To facilitate caregiver knowledge, To improve self management, To prevent re-injury and To improve ability to perform tasks related to life management Therapeutic Exercise to Include: Strength training, Power training, Flexibilty training, Passive ROM and Active ROM For the Purpose of:: To decrease pain, To increase ROM, To improve nutrient delivery to tissue, To increase oxygenation perfusion, To improve muscle performance and motor function, To improve ability to perform ADL's, To improve gait and locomotor functions, To improve health of tissue, To decrease soft tissue restriction and To increase flexibility/ROM Text: Thank you for the opportunity to evaluate your patient. For Medicare and Medicare HMO plans, please review the plan of care and approve it. It will need to be FAXED BACK to us at [phone] for Medicare purposes. For Medicare only, by signing this I certify the plan of care. Please let me know if there are questions or concerns regarding this plan of care. Physician Signature: Date:
== END 2023-04-26 19:00 | disposition home or self-care (01) ==
LOC: PT 07:47
PROVIDERS: Visit Provider Specialist
DX: Z96.651 Presence of right artificial knee joint (principal); Z96.641 Presence of right artificial hip joint
CPT/HCPCS: 97110; 97164

== ENCOUNTER 2024-03-11 08:30 | Outpatient (RCR) | payer MEDICARE, SELFPAY ==
--- NOTE | 2024-02-13 08:25 | HP.PTEVAL ---
Patient's Visit Information Visit Information Visit Information: DAKOTA PULIDO is a 83 year old M referred to Physical Therapy by Dr. Dario Sharma MD with a diagnosis of Unsteady gait. Date of Evaluation: 02/13/24 Physical Therapist: Kamlesh Newton, PT, ATC Visit Plan Frequency: 2x /Week Duration: 2-4 Weeks Plan: Instruct and advance HEP focused around B LE strengthening, balance and proprio, and gait training Subjective Subjective: Pt notes his gait has become more and more unsteady over the last several years. Pt reports he has fallen several times in the past, with the last fall occurring 3 weeks ago where he fell in the garage, injuring his L knee and R wrist. Pt reports he can feel his feet hitting the ground, but his feet are always in pain. Pt reports he does get dizzy at times, but that has never been the cause of his falls. Pt reports most of the time he falls, it is because his body will turn to make a move and his feet will remain still. Pt reports he is often times more unsteady in the morning times. Pt reports he is in some pain, 0/10 at rest, but increases to 7/10 at worst. Pt reports he has stairs he has to negotiate at home, and has a lot of difficulty with them. 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 Pain B knees: Pain Intensity (Out of 10): 0 Pain Intensity Range: 7 Objective Objective: Neuro: B LE sensation is WNL to light touch MMT: B LE's are grossly 4-/5 throughout TU.38 sec sit to saddle lining stitcher 30 sec: 5 reps in 30 sec FGA: 04/14- significant balance impairment Balance/Special Test Scores Functional Gait Assessment Score: 9 % Disability: 70.0000 Lower Extremity Functional Score: 30 Goals Goal 1:: Pt will be able to perform a TUG test in under 20 seconds to aid with community mobility Goal Time Frame: 2-4 Weeks Goal 2:: Pt will be able to perform 8 sit to stand transfers to aid with I at home Goal Time Frame: 2-4 Weeks Goal 3:: I with HEP Goal Time Frame: 2-4 Weeks Rehabilitation Potential Physical Therapy Diagnosis: Pt has B LE weakness, unsteady gait, and a Hx of falls secondary to debilitation Rehabilitation Potential: Good Anticipated Interventions Patient/Client Instruction: Educate patient on: Condition and Plan of Care For the Purpose of:: To improve self management Therapeutic Exercise to Include: Strength training, Endurance training, Balance training and Gait and locomotor training For the Purpose of:: To improve muscle performance and motor function, To improve ability to perform ADL's, To increase tolerance to activity/condition/position and To improve ability of physical actions for home/community/work/leisure Text: Thank you for the opportunity to evaluate your patient. For Medicare and Medicare HMO plans, please review the plan of care and approve it. It will need to be FAXED BACK to us at [phone] for Medicare purposes. For Medicare only, by signing this I certify the plan of care. Please let me know if there are questions or concerns regarding this plan of care. Physician Signature: Date:
--- NOTE | 2024-03-11 09:26 | HP.PTDCSUM ---
Discharge Summary D/C summary: It has been my pleasure to treat DAKOTA PULIDO referred by Dr. Dario Sharma MD, with the diagnosis of Unsteady gait for a total of 7 visit(s). Discharge Date: Please see the following information for a summary of their discharge status. Subjective Subjective: I am ready to be done. I am joining [facility] Pain B knees: Pain Intensity (Out of 10): 4 Overall Improvement % Improvement: 75 Objective Objective/Function: Pt is I with HEP Pt can perform 10 sit to stand transfers without use of UE's TUG 17 sec's Rx goals achieved Goals Goal 1:: Pt will be able to perform a TUG test in under 20 seconds to aid with community mobility Goal Progress: Goal Met Goal 2:: Pt will be able to perform 8 sit to stand transfers to aid with I at home Goal Progress: Goal Met Goal 3:: I with HEP Goal Progress: Goal Met Plan Plan: Discharge to [facility] D/C Information d/c sentence: If there are questions or concerns regarding this patient's physical therapy, please feel free to call me at [phone]. Thank you for the referral of this patient. Sincerely, Kamlesh Newton, PT, ATC Balance/Gait/Functional tests Balance/Special Test Scores Functional Gait Assessment Score: 9 % Disability: 70.0000 Lower Extremity Functional Score: 45 Improvement % Improvement: 75
== END 2024-03-11 09:45 | disposition home or self-care (01) ==
LOC: PT 08:30
PROVIDERS: PCP Family Medicine; Referring Provider Family Medicine; Visit Provider Family Medicine
DX: R26.81 Unsteadiness on feet (principal); R54 Age-related physical debility; W19.XXXD Unspecified fall, subsequent encounter
CPT/HCPCS: 97110; 97161; 97530

== ENCOUNTER → 2024-07-01 | Outpatient (CLI) | payer MEDICARE, SELFPAY ==
--- NOTE | 2024-07-01 16:10 | MRI_ITS ---
EXAM: MR HEAD WITHOUT AND WITH INTRAVENOUS CONTRAST, INTERNAL AUDITORY CANAL PROTOCOL CLINICAL INDICATION: ASYMMETRIC HEARING LOSS- LEFT SIDE TECHNIQUE: Multiplanar and multisequence MR images of the internal auditory canal were obtained without and with intravenous contrast. CONTRAST: IV 24ML CLARISCAN COMPARISON: No relevant prior studies available. FINDINGS: CRANIAL NERVES: No significant abnormality. No mass. No abnormal enhancement. COCHLEA AND SEMICIRCULAR CANALS: No significant abnormality. CEREBELLOPONTINE ANGLES: No significant abnormality. No mass. BRAIN AND EXTRA-AXIAL SPACES: Mild global parenchymal volume loss is not atypical for age. Periventricular T2 and T2 FLAIR hyperintensity is nonspecific although most commonly due to chronic microvascular ischemic changes in a patient of this age. There is no restricted diffusion to indicate recent infarct or other pathology. No intra- or extra-axial hemorrhage. No intracranial mass or mass effect. Posterior fossa structures are unremarkable. No hydrocephalus. Basal cisterns are patent. No pathologic brain parenchymal or meningeal enhancement. BONES/JOINTS: No significant abnormality. No discrete lytic or blastic abnormalities. SINUSES: Normal as visualized. Clear. MASTOID AIR CELLS: Normal as visualized. Clear. ORBITS: Normal as visualized. Both globes, extraocular muscles, optic nerves and retrobulbar fat appear unremarkable. NASAL CAVITY/SEPTUM: Apparent polyp within the right side of the nasal cavity measures approximately 2.7 cm. MRI/Brain W/WO Contrast IMPRESSION: 1. No evidence of retrocochlear pathology or other findings to explain the patient''s asymmetrical hearing loss. 2. Chronic microvascular ischemic changes and global parenchymal volume loss. No acute intracranial pathology. 3. Apparent polyp within the right side of the nasal cavity measures approximately 2.7 cm. Consider ENT consultation for further evaluation. Electronically Signed: Emmanuel Rodríguez, at 0:05 EST ,
[2024-07-01 17:34] LABS: CREATININE FINGERSTICK < 1.0 mg/dL (0.70-1.30); EGFR FINGERSTICK > 60.0000 mL/min (>60)
== END | disposition home or self-care (01) ==
LOC: MRI 16:01
PROVIDERS: PCP Family Medicine; Referring Provider Otolaryngology; Visit Provider Otolaryngology
DX: Z01.812 Encounter for preprocedural laboratory examination (principal); H90.3 Sensorineural hearing loss, bilateral
CPT/HCPCS: 70553; A9575

== ENCOUNTER → 2024-07-29 | Outpatient (CLI) | payer MEDICARE, SELFPAY ==
[2024-07-29 11:39] LABS: Hematocrit 47.1 % (40-54); Hemoglobin 15.3 g/dL (13.0-16.5); Mean Corp Hgb Conc 32.5 g/dL (32-36); Mean Corpuscular Hgb 30.7 pg (27.0-32.0); Mean Corpuscular Volume 94.6 fL (80-94); Mean Platelet Vol. 9.9 fl (6.2-12.0); Platelet Count 198 K/mm3 (150-450); RBC Distribution Width CV 13.2 % (11.6-14.6); RBC Distribution Width SD 46.1 fl (35.1-43.9); Red Blood Count 4.98 M/mm3 (4.6-6.2); White Blood Count 7.5 K/mm3 (4.4-11.0)
== END | disposition home or self-care (01) ==
LOC: LAB 11:10
PROVIDERS: PCP Family Medicine; Referring Provider Internal Medicine Cardiovascular Disease; Visit Provider Internal Medicine Cardiovascular Disease
DX: I48.91 Unspecified atrial fibrillation (principal)
CPT/HCPCS: 36415; 85027

== ENCOUNTER → 2024-08-13 | Outpatient (CLI) | payer MEDICARE, SELFPAY | END | disposition home or self-care (01) | PROVIDERS: PCP Family Medicine; Referring Provider Internal Medicine Cardiovascular Disease; Visit Provider Internal Medicine Cardiovascular Disease | DX: I48.91 Unspecified atrial fibrillation (principal) | CPT/HCPCS: 93225; 93226 ==

== ENCOUNTER 2024-09-09 12:54 | Outpatient (RCR) | payer MEDICARE, SELFPAY ==
[2024-09-09 13:15] VITALS: BP 133/79; PULSE 81; RESP 16; TEMP 36.2; BMI 39.5
--- NOTE | 2024-09-11 14:15 | HP.PCM_ITS ---
History of Present Illness Date of Service: 09/09/24 [facility] Medical History (Updated 09/11/24 @ 15:[address] 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 Open leg wound Cellulitis Atrial fibrillation Venous insufficiency Hyperlipidemia Morbid obesity Hypertension Benign paroxysmal positional vertigo Shortness of breath Chronic back pain Osteoarthritis Home Medications ?Medication ?Instructions ?Recorded ?Last Taken ?Type amlodipine 5 mg tablet 5 mg PO QDAY BP 12/13/1704/03 History hydrochlorothiazide 25 mg tablet 25 mg PO QDAY BP 11/15 08/02 Unknown History cholecalciferol (vitamin D3) 50 50 mcg PO DAILY Unknown History mcg (2,000 unit) capsule acetaminophen 500 mg tablet 500 mg PO Q6H PRN pain Unknown History (Tylenol Extra Strength) apixaban 5 mg tablet (Eliquis) 5 mg PO BID #180 tabs 0 12/12/23 Unknown Rx multivitamin 1 tab PO DAILY 12/12/23 Unkn own History polyethylene glycol 3350 17 17 g PO QDAY PRN constipat ion 07/29/24 Unknown History gram/dose oral powder (Miralax) Allergy/AdvReac Type Severity Reaction Status Date / Time No Known Allergies Allergy Verified 07/29/24 10:18 Family History Father CAD (coronary artery disease) Surgical History (Updated 09/11/24 @ 14:[address] Blayne Che MD) History of carpal tunnel release History of rhinoplasty S/P hip replacement S/P colonoscopy S/P appendectomy Social History Smoking Status: Former smoker Vital Signs Vital Signs Vital Signs: Weight Weight: 260 lb Body Mass Index (BMI) 39.5 Debridement Note Debridement Note Post-Debridement Measurements and Additional Note: Post-Debridement Measurements/Treatment WC - Nurse 1 - General Ulcer Assessment Start: 09/09/24 13:15 Freq: Status: Active Protocol: JASMIN Activity Type Activity Date Activity User E-sign Co-sign Detail Recorded Client Recorded Date Recorded By Document 09/09/24 13:15 [email or web address] [id number] 09/09/24 13:36 JF 09/09/24 13:15 WC - Today's Visit Information Type of service Initial Visit Arrival Mode Ambulatory Accompanied by Patient Identification Verified (Name & Yes ) Patient Requires Transmission-Based No Precautions Height and Weight Height 5 ft 8 in Weight 260 lb Weight in Pounds 260.0 lbs Body Mass Index (BMI) 39.5 BMI Classification Obese Vital Signs Temperature (97.8 F-99.1 F) 97.1 F L Temperature Source Temporal Pulse Rate (60-100) 81 Pulse Location Monitor Respiratory Rate (12-18) 16 Respiratory rate source Observation Blood Pressure (90/60-120/80) 133/79 H Blood Pressure Mean 97 Source Monitor Position Semi-Fowlers Blood Pressure Location Right Arm History Since Last Visit- (Skip if this is Patient's initial visit) Left Footwear Regular Shoe Right Footwear Regular Shoe Pain Scale: 0-10 Numeric Is Patient Pain Free? Yes Lower Extremity Assessment/ Foot Assessment/ Toe Nail Assessment Right -Posterior Tibial Palpable Yes -Posterior Tibial Doppler Multiphasic -Dorsalis Pedis Palpable Yes -Dorsalis Pedis Doppler Multiphasic -Extremity Color Hyperpigmented -Hair Growth on Legs Yes -Hair Growth on Toes No -Temperature of Extremity Warm -Capillary Refill Less than 3 Seconds -Dependent Rubor Yes -Blanched when Elevated No -Lipodermatosclerosis No -Other Deformity No -Prior Foot Ulcer No -Thick Yes -Discolored Yes -Deformed No -Improper Length & Hygeine No Left -Posterior Tibial Palpable Yes -Posterior Tibial Doppler Multiphasic -Dorsalis Pedis Palpable Yes -Dorsalis Pedis Doppler Multiphasic -Extremity Color Hyperpigmented -Hair Growth on Legs Yes -Hair Growth on Toes Yes -Temperature of Extremity Warm -Capillary Refill Less than 3 Seconds -Dependent Rubor Yes -Blanched when Elevated No -Lipodermatosclerosis No -Thick Yes -Discolored Yes -Deformed No -Improper Length & Hygeine No Communication Assessment Preferred language Cypriot Yeast Pumper Required No Able to Read Yes Able to Write Yes Communication Tools None Caregiver Communication Skills No Impairment Impairment Right Hearing Abillity Hard of Hearing ,Use of Hearing Aid Left Hearing Abillity Hard of Hearing ,Use of Hearing Aid Visual Assistive Devices Glasses Teaching Assessment Preferences Verbal,Written, Audio/Visual, Demonstration Readiness To Learn Good Willingness to Engage in Self Management Med Activies Readiness to Engage in Self Management Med Activities Anxiety Level Calm Cooperation Cooperative Interest in Health Problem Asks Questions Education Importance Acknowledges Need Does Patient Smoke tobacco or other No substances Smoking Status Former smoker Is Patient Diabetic No Functional Assessment Recent Decline in Ability to Perform Ambulation Assistive Device With Patient cane Culture/Confucianism/Director Of Search Engine Optimization Cultural/Confucianism Needs that may affect No Treatment Plan Would you allow our hospital flotation operator to No meet you for the purpose of spiritual/ emotional support? Director Of Search Engine Optimization to contact place of protestant No Teaching: Wound Center [facility] Orientation/ Contacting Physician -Person Taught Patient -Teaching Method Discussion, Demonstration -Response to teaching Return Demonstration, Verbalize Understanding - Nurse 1 - General Ulcer Measurement Start: 09/09/24 13:15 Freq: Status: Active Protocol: Activity Type Activity Date Activity User E-sign Co-sign Detail Recorded Client Recorded Date Recorded By Document 09/09/24 13:15 [id number] 09/09/24 13:36 09/09/24 13:15 Wound Center Nurse 1 Lower Limb Edema Present Yes Right Calf (cm) 41.7 Right Ankle (cm) 25.0 Left Calf (cm) 42.8 Left Ankle (cm) 26.8 - Nurse 3 - General Ulcer D/C NN Start: 09/09/24 13:15 Freq: Status: Active Protocol: Activity Type Activity Date Activity User E-sign Co-sign Detail Recorded Client Recorded Date Recorded By Document 09/09/24 14:29 [id number] 09/09/24 14:30 09/09/24 14:29 Wound Care Center Nurse 3 Right -Tubular Bandage Double Layer -Size of Tubigrip Used Size E -Size E ($) 2 Left -Tubular Bandage Double Layer -Size of Tubigrip Used Size E -Size E ($) 2 Pain Scale: 0-10 Numeric Is Patient Pain Free? Yes - Visit Discharge Discharge Condition Stable Ambulatory Status Ambulatory Transportation Private Auto Medication Reconcilliation completed & Yes provided to patient/care provider Clinical Summary of Care Provided Yes Assessment/Plan Assessment/Plan (1) Venous insufficiency: CODE(S): I87.2 - Venous insufficiency (chronic) (peripheral) (2) Localized swelling of both lower legs: CODE(S): R22.43 - Localized swelling, mass and lump, lower limb, bilateral (3) Lipodermatosclerosis of both lower extremities: CODE(S): M79.3 - Panniculitis, unspecified (4) Romano phlebectatica paraplantaris: CODE(S): R09.89 - Other specified symptoms and signs involving the circulatory and respiratory systems (5) Atrial fibrillation: CODE(S): I48.91 - Unspecified atrial fibrillation QUALIFIERS: Atrial fibrillation type: unspecified Qualified Code(s): I48.91 - Unspecified atrial fibrillation (6) Hyperlipidemia: CODE(S): E78.5 - Hyperlipidemia, unspecified QUALIFIERS: Hyperlipidemia type: pure hypercholesterolemia Qualified Code(s): E78.00 - Pure hypercholesterolemia, unspecified (7) Hypertension: CODE(S): I10 - Essential (primary) hypertension QUALIFIERS: Hypertension type: primary hypertension Qualified Code(s): I10 - Essential (primary) hypertension (8) Benign paroxysmal positional vertigo: CODE(S): H81.10 - Benign paroxysmal vertigo, unspecified ear (9) Chronic back pain: CODE(S): M54.9 - Dorsalgia, unspecified; G89.29 - Other chronic pain (10) Osteoarthritis: CODE(S): M19.90 - Unspecified osteoarthritis, unspecified site (11) History of carpal tunnel release: CODE(S): Z98.890 - Other specified postprocedural states (12) History of rhinoplasty: CODE(S): Z98.890 - Other specified postprocedural states (13) S/P hip replacement: CODE(S): Z96.649 - Presence of unspecified artificial hip joint (14) S/P appendectomy: CODE(S): Z90.49 - Acquired absence of other specified parts of digestive tract (15) Chronic anticoagulation: CODE(S): Z79.01 - USP (current) use of anticoagulants
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
== END 2024-09-12 11:04 | disposition home or self-care (01) ==
LOC: WC 12:54
PROVIDERS: PCP Family Medicine; Referring Provider Family Medicine; Visit Provider Surgery
DX: I87.2 Venous insufficiency (chronic) (peripheral) (principal); I48.91 Unspecified atrial fibrillation; M19.90 Unspecified osteoarthritis, unspecified site; Z90.89 Acquired absence of other organs; M54.9 Dorsalgia, unspecified; E78.00 Pure hypercholesterolemia, unspecified; Z87.891 Personal history of nicotine dependence; Z79.01 Long term (current) use of anticoagulants; I10 Essential (primary) hypertension; R22.43 Localized swelling, mass and lump, lower limb, bilateral; M79.3 Panniculitis, unspecified; R09.89 Other specified symptoms and signs involving the circulatory and respiratory systems; H81.10 Benign paroxysmal vertigo, unspecified ear
CPT/HCPCS: 99213; G0463

== ENCOUNTER → 2024-11-05 | Outpatient (CLI) | payer MEDICARE, SELFPAY ==
--- NOTE | 2024-11-05 14:50 | CT_ITS ---
PROCEDURE: SINUS/FACIAL BONE REASON FOR EXAM: CHRONIC SINUSITIS W/ POLYPOSIS TECHNIQUE: CT of the paranasal sinuses without contrast. Coronal and Sagittal reconstruction series were provided. One or more dose reduction techniques were used (e.g., Automated exposure control, adjustment of the mA and/or kV according to patient size, use of iterative reconstruction technique). COMPARISON: None. FINDINGS: Frontal: Aplastic left frontal sinus. Normal right frontal sinus. Ethmoid: Normally aerated. Sphenoid: Normally aerated. Maxillary: Normally aerated. Turbinates: Normal Nasal Septum: Midline Mastoids/Middle Ears: Normal 1 x 3 cm soft tissue mass within the right nasal cavity likely consistent with a polyp or less likely carcinoma. CT/Sinus/Facial Bone IMPRESSION: Right nasal cavity mass consistent with polyp or carcinoma. Reading Location: [id number]
== END | disposition home or self-care (01) ==
LOC: CT 14:46
PROVIDERS: PCP Family Medicine; Referring Provider Otolaryngology; Visit Provider Otolaryngology
DX: J32.8 Other chronic sinusitis (principal); J33.0 Polyp of nasal cavity
CPT/HCPCS: 70486

== ENCOUNTER 2024-12-15 11:04 | Day surgery (SDC) | payer MEDICARE, SELFPAY ==
--- NOTE | 2024-12-09 19:18 | PAT.ANE_ITS ---
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 When Was Last Pacemaker Check QUESTION #4 FULL TEXT: You/Your Family Experience fever (hyperthermia) with Anesthesia Last Oral Intake Last Oral intake: Last Oral Intake NPO since Meds taken in AM with sips of water? Meds patient instructed to take am of surgery PONV PONV - script writer: PONV - script writer Female No 12/09/24 14:00 HX of Motion Sickness No 12/09/24 14:00 HX of N/V After Surgery Yes 12/09/24 14:00 Non-Smoker Yes 12/09/24 14:00 Duration of Surgery greater Yes 12/09/24 14:00 than 60 minutes Number of Risk Factors 3 12/09/24 14:00 PONV Score Moderate Risk 12/09/24 14:00 Height & Weight Height & Weight: Anesthesia: Height & Weight Height 5 ft 8 in 09/09/24 13:15 Respiratory Assessment Respiratory Assessment - script writer: Respiratory Tract Infection Hx - script writer Hx Respiratory Tract Infection No 12/09/24 14:00 STOP Sleep Apnea STOP Sleep Apnea - script writer: STOP Sleep Apnea - script writer Hx Hypertension Yes: controlled on meds 12/09/24 14:00 Hx Sleep Apnea No 12/09/24 14:00 CPAP BIPAP Do you snore loudly (louder No 12/09/24 14:00 than talking or can be heard Do you often feel tired/ No 12/09/24 14:00 fatigued/ sleepy during daytime? Has anyone observed you stop No 12/09/24 14:00 breathing during sleep? STOP Results Negative 12/09/24 14:00 QUESTION #5 FULL TEXT : Do you snore loudly (louder than talking or can be heard through closed doors)? 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 Specify any problems Hx of Preganancy in last 3 N/A 12/09/24 14:00 Months Nurse Filling Out Transfusion VCHRISTIN 12/09/24 14:00 & Questions: Date: 12/09/24 12/09/24 14:00 Time: 14:01 12/09/24 14:00 Patient unable to answer at this time (ie. confused, unrespo /Reproduction History /Reproductive History - script writer: /Reproductive Hx- script writer Hx Now Gestational Age (in weeks): EDC: Hx Hx Para Hx Section SAB PFSH Medical History (Updated 12/09/24 @ 14:00 by Jody Godfrey) Wears hearing aid Wears glasses Anxiety Alcohol use Open wound History of steroid therapy Arthritis Easy bruising Excessive bleeding Back pain Injury of head and neck Chewing tobacco dependence in remission History of pain when walking History of edema History of echocardiogram History of stress test History of Holter monitoring Cardiology follow-up encounter Chronic anticoagulation Localized swelling of both lower legs 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 Open leg wound Cellulitis Atrial fibrillation Venous insufficiency Hyperlipidemia Morbid obesity Hypertension Benign paroxysmal positional vertigo Shortness of breath Chronic back pain Osteoarthritis Home Medications ?Medication ?Instructions ?Recorded ?Last Taken ?Type amlodipine 5 mg tablet 5 mg PO QDAY BP 12/13/1704/03 History hydrochlorothiazide 25 mg tablet 25 mg PO QDAY BP 11/15 08/02 Unknown History cholecalciferol (vitamin D3) 50 50 mcg PO DAILY 05/09/ 24 Unknown History mcg (2,000 unit) capsule acetaminophen 500 mg tablet 500 mg PO Q6H PRN pain Unknown History (Tylenol Extra Strength) apixaban 5 mg tablet (Eliquis) 5 mg PO BID #180 tabs 0 12/12/23 12/05/24 Rx multivitamin 1 tab PO DAILY 12/12/23 Unkn own History polyethylene glycol 3350 17 17 g PO QDAY PRN constipat ion 07/29/24 Unknown History gram/dose oral powder (Miralax) doxycycline monohydrate 100 mg 100 mg PO BID 12/09/24 Unknown History tablet prednisone 10 mg tablets in a dose See Rx Instructions PO .COMPLEX 12/09/24 Unknown History pack Allergy/AdvReac Type Severity Reaction Status Date / Time No Known Allergies Allergy Verified 12/09/24 13:36 Family History Father CAD (coronary artery disease) Surgical History (Updated 12/09/24 @ 14:00 by Jody Godfrey) History of total shoulder replacement Hx of total knee replacement Hx of knee surgery History of carpal tunnel release History of rhinoplasty S/P hip replacement S/P colonoscopy S/P appendectomy Social History Smoking Status: Former smoker Audit: Pertinent Findings Pertinent Findings EKG Perinent findings: 07/29/2024. Atrial fibrillation. Left axis deviation?anterior fascicular block. Poor R wave progression?nonspecific?consider old anterior infarct. Stress test pertinent findings: 11/14/2023. Mild less than 10% ischemia in the territory of the LAD?apical region. EF is 64%. No infarct. Echo (EF%) pertinent findings: November 16, 2023. EF of 58%. No significant valvular abnormalities. Consult pertinent findings: 07/29/2024. Dr. Lundy. 1. Atrial fibrillation?acute-incidental finding of October 2023. Patient is unaware that he is in A-fib. He has no palpitations or syncope or near syncope. No evidence of change in exercise tolerance. Patient is tolerating Eliquis. Heart rate controlled with beta-aman down to 50 bpm. Will hold metoprolol and check a Holter in 2 to 3 weeks. 2. Hypertension?chronic-controlled. Additional pertinent findings: Holter monitor. 08/13/2024. Atrial fibrillation. 1.4% ventricular ectopic beats including 2 wide-complex ventricular runs. Longest being 7 beats.. 24-hour diary noted slipping on the ice and hitting head without symptoms which correlated with A-fib. Recommendation Anesthesia Recommendation Anesthesia recommendation: F/U recommended (Please have cardiology review and c omment on stress test from November 14, 2023 from [place].)
--- NOTE | 2024-12-12 13:42 | PAT.ANESEVAL ---
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 When Was Last Pacemaker Check QUESTION #4 FULL TEXT: You/Your Family Experience fever (hyperthermia) with Anesthesia Last Oral Intake Last Oral intake: Last Oral Intake NPO since Meds taken in AM with sips of water? Meds patient instructed to take am of surgery PONV PONV - rubber cutting machine tender: PONV - rubber cutting machine tender Female No 12/09/24 14:00 HX of Motion Sickness No 12/09/24 14:00 HX of N/V After Surgery Yes 12/09/24 14:00 Non-Smoker Yes 12/09/24 14:00 Duration of Surgery greater Yes 12/09/24 14:00 than 60 minutes Number of Risk Factors 3 12/09/24 14:00 PONV Score Moderate Risk 12/09/24 14:00 Height & Weight Height & Weight: Anesthesia: Height & Weight Height 5 ft 8 in 09/09/24 13:15 Respiratory Assessment Respiratory Assessment - rubber cutting machine tender: Respiratory Tract Infection Hx - rubber cutting machine tender Hx Respiratory Tract Infection No 12/09/24 14:00 STOP Sleep Apnea STOP Sleep Apnea - rubber cutting machine tender: STOP Sleep Apnea - rubber cutting machine tender Hx Hypertension Yes: controlled on meds 12/09/24 14:00 Hx Sleep Apnea No 12/09/24 14:00 CPAP BIPAP Do you snore loudly (louder No 12/09/24 14:00 than talking or can be heard Do you often feel tired/ No 12/09/24 14:00 fatigued/ sleepy during daytime? Has anyone observed you stop No 12/09/24 14:00 breathing during sleep? STOP Results Negative 12/09/24 14:00 QUESTION #5 FULL TEXT : Do you snore loudly (louder than talking or can be heard through closed doors)? Tobacco Use History Tobacco Use History - rubber cutting machine tender: Tobacco Use History - rubber cutting machine tender Tobacco Use Smoking Status Former smoker 12/09/24 14:00 Hx Tobacco Use No 12/09/24 14:00 Years Smoking Packs Smoked per Day Smoking Cessation Date was No - quit smoking greater 12/09/24 14:00 within the last 15 years than 15 years ago Hx Smoking Cessation Date Hx Smoking Cessation Counseling Hematologic Medial History Hematologic Hx - rubber cutting machine tender: Hematologic Medical Hx - rn documentation Hx of Blood Transfusion No 12/09/24 14:00 Hx of Transfusion in last 3 No 12/09/24 14:00 Months Date of Last Transfusion (if within last 3 months) Ever experience any problems No 12/09/24 14:00 with transfusion(s)? Specify any problems Hx of Preganancy in last 3 N/A 12/09/24 14:00 Months Nurse Filling Out Transfusion VCHRISTIN 12/09/24 14:00 & Questions: Date: 12/09/24 12/09/24 14:00 Time: 14:01 12/09/24 14:00 Patient unable to answer at this time (ie. confused, unrespo /Reproduction History /Reproductive History - rubber cutting machine tender: /Reproductive Hx- rubber cutting machine tender Hx Now Gestational Age (in weeks): EDC: Hx Hx Para Hx Section SAB Active Medications Active Medications: Current Medications Generic Name Dose Route Start Last Admin Trade Name Freq PRN Reason Stop Dose Admin Oxymetazoline HCl 3 spray 12/15/24 13:20 Oxymetazoline 0.05% 1 Rosamond Rosamond.Btl NASAL 12/15/24 13:21 PREOP ONE [facility] Medical History (Updated 12/09/24 @ 14:00 by Jody Godfrey) Wears hearing aid Wears glasses Anxiety Alcohol use Open wound History of steroid therapy Arthritis Easy bruising Excessive bleeding Back pain Injury of head and neck Chewing tobacco dependence in remission History of pain when walking History of edema History of echocardiogram History of stress test History of Holter monitoring Cardiology follow-up encounter Chronic anticoagulation Localized swelling of both lower legs 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 Open leg wound Cellulitis Atrial fibrillation Venous insufficiency Hyperlipidemia Morbid obesity Hypertension Benign paroxysmal positional vertigo Shortness of breath Chronic back pain Osteoarthritis Home Medications ?Medication ?Instructions ?Recorded ?Last Taken ?Type amlodipine 5 mg tablet 5 mg PO QDAY BP 12/13/17 04/23/19 History hydrochlorothiazide 25 mg tablet 25 mg PO QDAY BP 12/13/17 Unknown History cholecalciferol (vitamin D3) 50 50 mcg PO DAILY 11/22/23 Unknown History mcg (2,000 unit) capsule acetaminophen 500 mg tablet 500 mg PO Q6H PRN pain 12/12/23 Unknown History (Tylenol Extra Strength) apixaban 5 mg tablet (Eliquis) 5 mg PO BID #180 tabs 12/12/23 12/05/24 Rx multivitamin 1 tab PO DAILY 12/12/23 Unknown History polyethylene glycol 3350 17 17 g PO QDAY PRN constipation 07/29/24 Unknown History gram/dose oral powder (Miralax) doxycycline monohydrate 100 mg 100 mg PO BID 12/09/24 Unknown History tablet prednisone 10 mg tablets in a dose See Rx Instructions PO .COMPLEX 12/09/24 Unknown History pack Allergy/AdvReac Type Severity Reaction Status Date / Time No Known Allergies Allergy Verified 12/09/24 13:36 Family History Father CAD (coronary artery disease) Surgical History (Updated 12/09/24 @ 14:00 by Jody Godfrey) History of total shoulder replacement Hx of total knee replacement Hx of knee surgery History of carpal tunnel release History of rhinoplasty S/P hip replacement S/P colonoscopy S/P appendectomy Social History Smoking Status: Former smoker Audit: Pertinent Findings HISTORY of Pertinent Findings History of Pertinent Findings: EKG Pertinent Findings EKG Perinent findings 07/29/2024. Atrial 12/09/24 19:21 fibrillation. Left axis deviation?anterior fascicular block. 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 Stress Test Pertinent Findings Stress test pertinent findings 11/14/2023. Mild less than 10 12/09/24 19:38 % ischemia in the territory of the LAD?apical region. EF is 64%. No infarct. Echo Pertinent Findings Echo (EF%) pertinent findings November 16, 2023. EF of 58%. No 12/09/24 19:31 significant valvular abnormalities. Consult Pertinent Findings Consult pertinent findings 07/29/2024. Dr. Lundy. 12/09/24 19:31 1. Atrial fibrillation? acute-incidental finding of October 2023. Patient is unaware that he is in A-fib. He has no palpitations or syncope or near syncope. No evidence of change in exercise tolerance. Patient is tolerating Eliquis. Heart rate controlled with beta-aman down to 50 bpm. Will hold metoprolol and check a Holter in 2 to 3 weeks. 2. Hypertension?chronic- controlled. Additional Pertinent Findings Additional pertinent findings Holter monitor. 08/13/2024. 12/09/24 19:31 Atrial fibrillation. 1.4% ventricular ectopic beats including 2 wide-complex ventricular runs. Longest being 7 beats.. 24-hour diary noted slipping on the ice and hitting head without symptoms which correlated with A-fib. Pertinent Findings Consult pertinent findings: December 11, 2024. Dr. Lundy. Stress test from November 14, 2023 reviewed. Ischemia was less than 10% and was read as low risk. Patient did not have any ischemic symptoms and should be able to proceed with nasal surgery. Recommendation Anesthesia Recommendation Anesthesia recommendation: OPTIMIZED for anesthesia
[2024-12-15] VITALS (9 sets, daily range): BP systolic 112–136; BP diastolic 51–83; PULSE 49–63; RESP 14–18; TEMP 36.3; O2SAT 94–100; BMI 40.5
[2024-12-15] MEDS: Lactated Ringers 1,000 ML 15 ML IV (11:43)
[2024-12-15] MEDS: Oxymetazoline 0.05% 1 SPRAY SPRAY.BTL 3 SPRAY NASAL ×2 (11:43→12:30)
--- NOTE | 2024-12-15 12:00 | PCM.PRE.AN2 ---
ASA Classification* ASA Classification ASA Classification: 3 (Chronic a-fib, HTN. Seems to be controlled ) Assessment & Plan Anesthesia* Anesthesia Assessment Anesthesia Assessment: Discussed sedation and/or anesthesia options, risks, benefits, and alternatives with patient/parents/legal guardian/POA. Questions invited. The patient/parents/legal guardian/POA seems to understand and agrees to proceed with anesthesia plan. Reviewed the physical assessment, medical history, allergy history and patient home medications list prior to surgery/procedure/anesthetic and documented any changes. Performed airway and anesthesia risk assessments. Anesthesia Type Anesthesia Type: General History Source History Obtained from:: Patient and Chart Anesthesia Focused Assessment* Temperature: 97.3 F Pulse Rate: 63 Blood Pressure: 125/83 Respiratory Rate: 18 Pulse Ox: 100 Oxygen Delivery Method: Room Air Airway Assessment Mouth opens: >3 cm Mallampati Score: II Teeth Condition: Intact Neck Range of motion (ROM): Full ROM Focused Labs Anesthesia Preop lab: CBC WBC 7.5 K/mm3 (4.4-11.0) 07/29/24 11:23 07/29/24 RBC 4.98 M/mm3 (4.6-6.2) 07/29/24 11:23 07/29/24 Hgb 15.3 g/dL (13.0-16.5) 07/29/24 11:23 07/29/24 Hct 47.1 % (40-54) 07/29/24 11:23 07/29/24 Plt Count 198 K/mm3 (150-450) 07/29/24 11:23 07/29/24 CHEMISTRY Potassium 3.8 mmol/L (3.5-5.1) 12/04/20 07:46 12/04/20 Sodium 144 mmol/L (136-145) 12/04/20 07:46 12/04/20 BUN 28 mg/dL (7-18) H 12/04/20 07:46 12/04/20 Creatinine 0.73 mg/dL (0.70-1.30) 12/04/20 07:46 12/04/20 Glucose 100 mg/dL (74-106) 12/04/20 07:46 12/04/20 POC Glucose 98 mg/dL (70-110) 04/23/19 06:20 04/23/19 COAG Pre-Assessment Diagnosis/Proposed Procedure Planned Operative Procedure(s): Functional Endoscopoic Sinus Surgery, Navigation Anesthesia History 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 When Was Last Pacemaker Check QUESTION #4 FULL TEXT: You/Your Family Experience fever (hyperthermia) with Anesthesia Last Oral Intake Last Oral intake: Last Oral Intake NPO since Meds taken in AM with sips of water? Meds patient instructed to take am of surgery PONV PONV - laundry pricing clerk: PONV - laundry pricing clerk Female No 12/09/24 14:00 HX of Motion Sickness No 12/09/24 14:00 HX of N/V After Surgery Yes 12/09/24 14:00 Non-Smoker Yes 12/09/24 14:00 Duration of Surgery greater Yes 12/09/24 14:00 than 60 minutes Number of Risk Factors 3 12/09/24 14:00 PONV Score Moderate Risk 12/09/24 14:00 Height & Weight Height & Weight: Anesthesia: Height & Weight Height 5 ft 8 in 12/15/24 11:28 Weight: 121 kg 12/15/24 11:28 Body Mass Index (BMI) 40.5 12/15/24 11:28 Respiratory Assessment Respiratory Assessment - laundry pricing clerk: Respiratory Tract Infection Hx - laundry pricing clerk Hx Respiratory Tract Infection No 12/09/24 14:00 STOP Sleep Apnea STOP Sleep Apnea - laundry pricing clerk: STOP Sleep Apnea - laundry pricing clerk Hx Hypertension Yes: controlled on meds 12/09/24 14:00 Hx Sleep Apnea No 12/09/24 14:00 CPAP BIPAP Do you snore loudly (louder No 12/09/24 14:00 than talking or can be heard Do you often feel tired/ No 12/09/24 14:00 fatigued/ sleepy during daytime? Has anyone observed you stop No 12/09/24 14:00 breathing during sleep? STOP Results Negative 12/09/24 14:00 QUESTION #5 FULL TEXT : Do you snore loudly (louder than talking or can be heard through closed doors)? Tobacco Use History Tobacco Use History - laundry pricing clerk: Tobacco Use History - laundry pricing clerk Tobacco Use Smoking Status Former smoker 12/09/24 14:00 Hx Tobacco Use No 12/09/24 14:00 Years Smoking Packs Smoked per Day Smoking Cessation Date was No - quit smoking greater 12/09/24 14:00 within the last 15 years than 15 years ago Hx Smoking Cessation Date Hx Smoking Cessation Counseling Hematologic Medial History Hematologic Hx - laundry pricing clerk: Hematologic Medical Hx - agricultural extension specialist Hx of Blood Transfusion No 12/09/24 14:00 Hx of Transfusion in last 3 No 12/09/24 14:00 Months Date of Last Transfusion (if within last 3 months) Ever experience any problems No 12/09/24 14:00 with transfusion(s)? Specify any problems Hx of Preganancy in last 3 N/A 12/09/24 14:00 Months Nurse Filling Out Transfusion VCHRISTIN 12/09/24 14:00 & Questions: Date: 12/09/24 12/09/24 14:00 Time: 14:01 12/09/24 14:00 Patient unable to answer at this time (ie. confused, unrespo /Reproduction History /Reproductive History - laundry pricing clerk: /Reproductive Hx- laundry pricing clerk Hx Now Gestational Age (in weeks): EDC: Hx Hx Para Hx Section SAB Active Medications Active Medications: Current Medications Generic Name Dose Route Start Last Admin Trade Name Freq PRN Reason Stop Dose Admin Lactated Ringer's 1,000 mls @ 15 mls/hr 12/15/24 11:15 12/15/24 11:43 IV 15 mls/hr .Q48H ANASTASIIA Administration Oxymetazoline HCl 3 spray 12/15/24 13:20 12/15/24 11:43 Oxymetazoline 0.05% 1 Lincoln Lincoln.Btl NASAL 12/15/24 13:21 3 spray PREOP ONE Administration PFSH Medical History (Updated 12/09/24 @ 14:00 by Jody Godfrey) Wears hearing aid Wears glasses Anxiety Alcohol use Open wound History of steroid therapy Arthritis Easy bruising Excessive bleeding Back pain Injury of head and neck Chewing tobacco dependence in remission History of pain when walking History of edema History of echocardiogram History of stress test History of Holter monitoring Cardiology follow-up encounter Chronic anticoagulation Localized swelling of both lower legs 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 Open leg wound Cellulitis Atrial fibrillation Venous insufficiency Hyperlipidemia Morbid obesity Hypertension Benign paroxysmal positional vertigo Shortness of breath Chronic back pain Osteoarthritis Home Medications ?Medication ?Instructions ?Recorded ?Last Taken ?Type amlodipine 5 mg tablet 5 mg PO QDAY BP 12/13/17 12/15/24 History hydrochlorothiazide 25 mg tablet 25 mg PO QDAY BP 12/13/17 Unknown History cholecalciferol (vitamin D3) 50 50 mcg PO DAILY 11/22/23 Unknown History mcg (2,000 unit) capsule acetaminophen 500 mg tablet 500 mg PO Q6H PRN pain 12/12/23 Unknown History (Tylenol Extra Strength) apixaban 5 mg tablet (Eliquis) 5 mg PO BID #180 tabs 12/12/23 12/05/24 Rx multivitamin 1 tab PO DAILY 12/12/23 Unknown History polyethylene glycol 3350 17 17 g PO QDAY PRN constipation 07/29/24 Unknown History gram/dose oral powder (Miralax) doxycycline monohydrate 100 mg 100 mg PO BID 12/09/24 Unknown History tablet prednisone 10 mg tablets in a dose See Rx Instructions PO .COMPLEX 12/09/24 12/15/24 History pack Allergy/AdvReac Type Severity Reaction Status Date / Time No Known Allergies Allergy Verified 12/15/24 11:26 Family History Father CAD (coronary artery disease) Surgical History (Updated 12/09/24 @ 14:00 by Jody Godfrey) History of total shoulder replacement Hx of total knee replacement Hx of knee surgery History of carpal tunnel release History of rhinoplasty S/P hip replacement S/P colonoscopy S/P appendectomy Social History Smoking Status: Former smoker Review of Systems (Anesthesia) ROS Narrative System reviewed and no additional complaints, except as documented. Physical Exam Const alert, oriented x3 and average body habitus Resp normal respiratory effort, normal air movement and clear to auscultation bilaterally Cardio no murmurs Rhythm: abnormal rhythm irregularly irregular
[2024-12-15] MEDS: Lidocaine 1% /Epi 1:100 (20ml) 20 ML Vial (12:30)
--- NOTE | 2024-12-15 12:45 | ETH_PTH ---
PATIENT: DAKOTA PULIDO [place] [facility] [place][id number] AGE/SX: 84/M ROOM: RE12/15/[address]: Dr. Vinod Arzola MD : 1940 BED: DIS: 12/15/2024 SPEC #: [id number] RECD: 12/15/24 13:32 STATUS: [facility] #: [id number] AMAN: 12/15/24 12:[address]: Vinod Arzola DEPT: SURGICAL PATHOLOGY RECD BY: Sergio Gautam ENTERED: 12/15/24 14:11 SP TYPE: ETH TISS OTHR DR: Dr. Dario Sharma MD Tissues: A - Ethmoid sinus, NOS B - Ethmoid sinus, NOS Procedures: Surgery Specimen Level IV HEADER OPERATION: Endoscopic, excision intranasal mass with Nagivation PRE-OP DIAGNOSIS: Chronic rhinitis, sinusitis, nasal polyp / mass TISSUE SUBMITTED: A- Right sinus contents, B- Right nasal mass MICROSCOPIC DIAGNOSIS A. Right nasal sinus, resection: * Benign nasal sinus mucosa with slight chronic inflammation B. Right nasal sinus, endoscopic resection: * Benign inflammatory nasal sinus mucosal polyp: MICROSCOPIC DESCRIPTION Slides are reviewed. GROSS DESCRIPTION A. Received in formalin in a container labeled with the patient's name, date of , and right sinus contents are multiple small perry-pink fragments of tissue admixed with blood clot material measuring 1.3 x 0.8 x 0.3 cm in aggregate. Submitted in toto in A1. B. Received in formalin in a container labeled with the patient's name, date of , and right nasal mass is an unoriented, 4.5 g, irregular piece of tissue measuring 3.2 x 2.9 x 1.2 cm. The outer surface is perry-pink and somewhat gelatinous. No distinct resection margin is grossly recognized. Serial sections have variegated perry-pink, gelatinous and glistening surfaces with bullock-yellow, thick mucus. Submitted entirely in B1-4. [facility] 12-15-2024 CPT:41949l3
--- NOTE | 2024-12-15 12:58 | PCM.DC.SUM ---
Providers Primary Care Physician: Dr. Dario Sharma MD Reason For Visit: Functional Endoscopoic Sinus Surgery, Navigation Medications at Discharge Home Medications amlodipine 5 mg tablet 5 mg PO QDAY BP 12/13/17 hydrochlorothiazide 25 mg tablet 25 mg PO QDAY BP 12/13/17 cholecalciferol (vitamin D3) 50 mcg (2,000 unit) capsule 50 mcg PO DAILY 11/22/23 acetaminophen 500 mg tablet (Tylenol Extra Strength) 500 mg PO Q6H PRN pain 12/12/23 apixaban 5 mg tablet (Eliquis) 5 mg PO BID #180 tabs 12/12/23 multivitamin 1 tab PO DAILY 12/12/23 polyethylene glycol 3350 17 gram/dose oral powder (Miralax) 17 g PO QDAY PRN constipation 07/29/24 doxycycline monohydrate 100 mg tablet 100 mg PO BID 12/09/24 prednisone 10 mg tablets in a dose pack See Rx Instructions PO .COMPLEX 12/09/24 Weight / BMI Weight Weight: 121 kg Body Mass Index (BMI) 40.5 D/C Instructions Discharge Diet: No restrictions Additional Activity Instructions: No nose blowing Start irrigation with saline tomorrow. Irrigate 4x/day DC O2, CPAP, BIPAP Needs Home O2 Discharge instructions: No DC home with Oxygen: No Please Follow Up With: Vinod Arzola MD When: next week Meaningful Use Info Meaningful Use Meaningful Use Diagnoses (Choose all that apply): None applicable Ischemic Stroke Statin Dosing Therapy Reference: STATIN DOSE THERAPY REFERENCE: * Patients > 75 years receive moderate or high dose statin therapy. * Patients 75 years or YOUNGER should receive HIGH intensity statin dose unless contraindicated. You will be required to document reason for non-treatment if statin daily dose does not meet guidelines. HIGH DOSE STATIN THERAPY DAILY Atorvastatin > than or = to 40 mg Rosuvastatin > than or = to 20 mg Amlodipine + Atorvastatin > than or = to 2.5/40 mg Ezetimibe + Simvastatin 10/80 mg Simvastatin 80mg Discharge Plan Admission Attending Provider: Vinod Arzola Primary Care Provider: Dario Sharma Instructions Print Language: Malaysian Discharge Orders/Prescriptions Prescriptions: No Action amlodipine 5 mg tablet 5 mg PO QDAY hydrochlorothiazide 25 mg tablet 25 mg PO QDAY cholecalciferol (vitamin D3) 50 mcg (2,000 unit) capsule 50 mcg PO DAILY multivitamin Tablet 1 tab PO DAILY acetaminophen [Tylenol Extra Strength] 500 mg tablet 500 mg PO Q6H PRN (Reason: pain) Eliquis 5 mg tablet 5 mg PO BID Qty: 180 3RF polyethylene glycol 3350 [Miralax] 17 gram/dose powder 17 g PO QDAY PRN (Reason: constipation) doxycycline monohydrate 100 mg tablet 100 mg PO BID prednisone 10 mg tablets,dose pack See Rx Instructions .ROUTE .COMPLEX Patient Comments: STARTED 12/08/24 Rx Instructions: orally per package directions Referrals / Follow Up: Dario Sharma MD [Primary Care Provider] - Disposition Disposition (needs filled in before D/C Order can be placed): Home, Self Care
--- NOTE | 2024-12-15 12:59 | OP.PCM_ITS ---
Operative Report (Standard) Operative Information Date of Procedure: 12/15/24 Pre-Operative Diagnosis: right nasal polyp chronic sinusitis Post-Operative Diagnosis: right nasal mass Surgery/Procedure Performed: Endoscopic excision right intranasal mass use of navigation bending machine operator: No Type of Anesthesia: General RN Documented Start/Stop Times: Operation Date: 12/15/24 12:45 Case Time Into Pre-Op 12/15/24 11:13 Out of Pre-Op 12/15/24 12:07 Anesthesia Start 12/15/24 12:14 Into Room 12/15/24 12:14 Procedure Start 12/15/24 12:30 Procedure End 12/15/24 12:57 Procedure Start Time: 12:30 Procedure Stop Time: 12:57 Select all DRAINS/GRAFTS/IMPLANTS that apply: None Estimated Blood Loss: minimal Specimen collected: Yes Description of specimen(s) removed: intranasal mass Description of surgery: The patient was taken to the operating room on 12/15/2024. The patient was placed in the supine position on the operating table. The patient was given sufficient general endotracheal anesthesia. The head of bed was elevated 30 degrees. The navigation system was placed and verified per protocol and found to be accurate. 0 and 30 degrees rigid nasal endoscopes were used throughout the entire case. I injected the large right polyp with 1% lidocaine with epinephrine. I then inserted a suction tip into the body of the polyp/mass. The mass was filled with thick mucus. This was suctioned away which deflated the mass enough for me to understand that the mass was coming from the olfactory cleft at the roof of the nose. I then re-looked at his preoperative CAT scans. I elected to excise the mass instead of performing endoscopic sinus surgery. I cut the mass with Michael-Cut forceps close to the roof of the nose. I carried the incision posteriorly until the mass was removed. It was approximately 3 x 4 cm. I then used the microdebrider to trim up the mass up to the roof of the nose. However, I did not breach the roof of the nose. Thus, some tissue/mass was left on the roof of the nose. I then cauterized this with suction cautery. I then applied Afrin pledgets. The pledgets were then removed and at this point I applied Ramón powder. Absolute hemostasis was then achieved. The procedure was then terminated. The patient was then awoken and brought to the recovery room in stable condition. blood loss less minimal, replacement none. Sponge, needle, instrument count were correct at the end of the procedure. Surgical Findings: Mass coming from the nasal roof on the right Complications Complications: No
--- NOTE | 2024-12-15 13:10 | PCM.POST.ANE ---
Anesthesia: Postop Eval I Current Vital Signs Temperature: 97.4 F Pulse Rate: 53 Blood Pressure: 135/76 Respiratory Rate: 14 Pulse Ox: 98 Oxygen Delivery Method: Room Air Assessment Airway patent: Yes Spontaneous unlabored respirations: Yes Mental status: Awake and Calm nausea: No Vomiting: No Anesthesia Complication: No Fluid Hydration Crystalloid volume administer (ml): 800 Total IV fluid infused: 800 Progress Note Anesthesia document: Postop Eval 1 completed: Yes
--- NOTE | 2024-12-15 16:07 | POSTOPAN2_ITS ---
Anesthesia Postop Eval I Sum Postop Eval Completion status Anesthesia document: Postop Eval 1 completed: Yes Anesthesia Postop Eval I Summary Anesthesia Postop Eval I Summary: Anesthesia Postop Eval I: Assessment Summary Airway patent Yes 12/15/24 13:10 [email or web address] [email or web address] Spontaneous unlabored Yes 12/15/24 13:10 [email or web address] [email or web address] [email or web address] respirations Mental status Awake,Calm 12/15/24 13:10 [email or web address] nausea No 12/15/24 13:10 [email or web address] [email or web address] [email or web address] Vomiting No 12/15/24 13:10 [email or web address] Anesthesia Postop Eval I: Fluid Summary Crystalloid volume administer 800 12/15/24 13:10 [email or web address] (ml) Colloids volume administered ( ml) Blood Product volume administered (ml) Total IV fluid infused 800 12/15/24 13:10 [email or web address] [email or web address] Anesthesia Postop Eval I: Summary Notes Anesthesia Complication No 12/15/24 13:10 [email or web address] [email or web address] Anesthesia Complication Comment: Post-operative progress note Anesthesia: Postop Eval II Evaluation Mental status: Awake Pain Level: 0 nausea: No Vomiting: No Complications Anesthesia Complication: No
--- NOTE | 2024-12-15 16:07 | PCM.POSTANE2 ---
Anesthesia Postop Eval I Sum Postop Eval Completion status Anesthesia document: Postop Eval 1 completed: Yes Anesthesia Postop Eval I Summary Anesthesia Postop Eval I Summary: Anesthesia Postop Eval I: Assessment Summary Airway patent Yes 12/15/24 13:10 [email or web address] Spontaneous unlabored Yes 12/15/24 13:10 [email or web address] respirations Mental status Awake,Calm 12/15/24 13:10 [email or web address] nausea No 12/15/24 13:10 [email or web address] Vomiting No 12/15/24 13:10 [email or web address] Anesthesia Postop Eval I: Fluid Summary Crystalloid volume administer 800 12/15/24 13:10 [email or web address] (ml) Colloids volume administered ( ml) Blood Product volume administered (ml) Total IV fluid infused 800 12/15/24 13:10 [email or web address] Anesthesia Postop Eval I: Summary Notes Anesthesia Complication No 12/15/24 13:10 [email or web address] Anesthesia Complication Comment: Post-operative progress note Anesthesia: Postop Eval II Evaluation Mental status: Awake Pain Level: 0 nausea: No Vomiting: No Complications Anesthesia Complication: No
== END 2024-12-15 14:33 | disposition home or self-care (01) ==
LOC: SDC 11:10 → AC 11:13
PROVIDERS: PCP Family Medicine; Referring Provider Otolaryngology; Visit Provider Otolaryngology
PROC: (CPT 31237; principal; 2024-12-15 12:15)
DX: J33.0 Polyp of nasal cavity (principal); Z87.891 Personal history of nicotine dependence; H90.3 Sensorineural hearing loss, bilateral; J31.0 Chronic rhinitis; J32.8 Other chronic sinusitis
CPT/HCPCS: 31237; 00160; 88305; J2405